=== PATIENT | female | born 1965 | race African-American/Black ===

== ENCOUNTER 2021-09-26 07:48 | Emergency (ER) | payer SELFPAY ==
[2021-09-26 07:49] VITALS: BP 152/77; PULSE 64; RESP 16; TEMP 36.8; O2SAT 98
[2021-09-26 08:20] VITALS: BP 152/77; PULSE 64; RESP 16; TEMP 36.8; O2SAT 98
--- NOTE | 2021-09-26 08:24 | ED.EAR ---
HPI - Ear Problem General Chief complaint: Ear Stated complaint: requesting nose and ear check Time Seen by Provider: 09/26/21 07:55 Source: patient Mode of arrival: ambulatory Limitations: no limitations History of Present Illness HPI Narrative: Patient is a 56-year-old female complaining of right ear and right nose itching started yesterday accompanied by nasal discharge. Patient states that feels like there is something in her ear and nose and she has been itching worse this morning. Patient denies any ear discharge, fever or chills. Patient states that she has allergies and takes Flonase. Related Data Allergies Allergy/AdvReac Type Severity Reaction Status Date / Time No Known Allergies Allergy Verified 09/26/21 07:58 PMFSH Comments Past medical history: None Family history: None Social history: Non-smoker no EtOH or drug use Exam Const: General: no acute distress Orientation/consciousness: patient oriented x3 HENMT: Head: normal to inspection Ears: external ears normal, TM's normal bilaterally, EAC's normal and Abnormal EAC present General nose exam: Normal external nose present, Normal nares present (Erythematous, boggy nasal turbinates) and Nasal discharge present clear Face and sinus: normal facial exam, sinuses nontender and no sinus tenderness Mouth: Yes moist mucous membranes Eyes: Conjunctivae: conjunctivae normal Neck: Neck: normal visual inspection Resp: Effort & Inspection: normal respiratory effort Course Vital Signs Vital signs: Vital Signs Temperature 36.8 C 09/26/21 07:49 Pulse Rate 64 09/26/21 07:49 Respiratory Rate 16 09/26/21 07:49 Blood Pressure 152/77 H 09/26/21 07:49 Pulse Oximetry 98 09/26/21 07:49 Temperature 36.8 C 09/26/21 08:20 Pulse Rate 64 09/26/21 08:20 Respiratory Rate 16 09/26/21 08:20 Blood Pressure 152/77 H 09/26/21 08:20 Pulse Oximetry 98 09/26/21 08:20 Medical Decision Making Vital Signs Vital Signs: Vital Signs Temperature 36.8 C 09/26/21 07:49 Pulse Rate 64 09/26/21 07:49 Respiratory Rate 16 09/26/21 07:49 Blood Pressure 152/77 H 09/26/21 07:49 Pulse Oximetry 98 09/26/21 07:49 Temperature 36.8 C 09/26/21 08:20 Pulse Rate 64 09/26/21 08:20 Respiratory Rate 16 09/26/21 08:20 Blood Pressure 152/77 H 09/26/21 08:20 Pulse Oximetry 98 09/26/21 08:20 Discharge Plan Discharge Clinical Impression: Seasonal allergies Patient Disposition: Home, Self-Care Condition: Stable Instructions: Allergies (ED) Prescriptions: New fexofenadine [Krystin Allergy] 180 mg tablet 180 mg PO DAILY Qty: 14 RF: 0 fluticasone propionate [24 Hour Allergy Relief] 50 mcg/actuation spray,suspension 1 spray intranasal DAILY Qty: 16 RF: 0 Follow-up/Referrals: Tiana,Joon Diaz MD [Primary Care Provider] - 09/30/21 Time of Disposition: 08:28
--- NOTE | 2021-09-26 08:29 | PC.NURSE ---
Pt becoming agitated and telling this RN I am not gonna sit here and wait for papers. I am leaving. Not doing it. This RN discussed EDP has not placed pt up for discharge yet, is possibly working on papers and I can find out. Pt unwilling to wait. Pt ambulated out in no distress.
== END 2021-09-26 08:31 | disposition home or self-care (01) ==
PROVIDERS: Emergency Provider Emergency Medicine; PCP Family Medicine
DX: J30.2 Other seasonal allergic rhinitis (principal)
CPT/HCPCS: 99283

== ENCOUNTER 2022-04-11 01:00 | Day surgery (SDC) | payer OTHER, SELFPAY ==
[2022-03-26 14:27] VITALS: BMI 36.1
[2022-04-11 11:18] VITALS: BP 129/81; PULSE 77; RESP 18; TEMP 35.8; O2SAT 100; BMI 35.6
--- NOTE | 2022-04-11 11:24 | PM.HPGS ---
History of Present Illness History of Present Illness Consent: Risks, benefits, and alternatives have been discussed and questions answered. Patient agrees to proceed with procedure. Chief complaint: family hx colon ca, neoplasm screening Narrative: Maida Roberts is a 57 year old female Referred for colon cancer screening. Her father had colon cancer. Review of Systems Review of Systems: All systems reviewed & are unremarkable except as noted in HPI and below PMFSH Social History Social History Smoking status: Never smoker Alcohol intake: never Substance use: never Substance use type: does not use Living arrangements: with family Spiritual care concerns: No Meds Home Medications and Allergies Home Medications Medication Instructions Recorded Confirmed Type ergocalciferol (vitamin D2) 1,250 1,250 mcg PO WEEKLY 03/26/22 03/26/22 History mcg (50,000 unit) capsule losartan 50 mg-hydrochlorothiazide 1 tablet PO DAILY 03/26/22 03/26/22 History 12.5 mg tablet topiramate 25 mg tablet 25 mg PO DAILY 03/26/22 03/26/22 History Allergies Allergy/AdvReac Type Severity Reaction Status Date / Time No Known Allergies Allergy Verified 04/11/22 11:17 Vital Signs Vital Signs - 24 hr 04/11/22 11:18 Temperature 35.8 C L Pulse Rate 77 Respiratory Rate 18 Blood Pressure 129/81 Pulse Oximetry 100 Oxygen Delivery Room Air Exam Const: General: alert Orientation/consciousness: patient oriented x3 Resp: Auscultation: clear to auscultation bilaterally Cardio: Rhythm: regular rhythm GI: GI Palp: Yes Soft to palpation and No Tenderness to palpation present (GI) Neuro: General: patient oriented x3 Assessment and Plan Assessment and plan (1) Colon cancer screening: Code(s): Z12.11 - Encounter for screening for malignant neoplasm of colon Status: Acute Assessment and Plan: Colonoscopy with possible biopsy or polypectomy or cautery or injection of substances.
[2022-04-11] MEDS: LACTATED RINGERS 1,000 ML 150 ML IV CONT (11:35)
--- NOTE | 2022-04-11 11:36 | P.PNAN_ITS ---
Anes - Initial Pre Proc Eval Procedure: Operation Date: 04/11/22 12:30 Proposed Procedures p Screening Colonoscopy - Gonzalo Durand MD Date/Time: 04/11/22 11:36 Surgeon: Gonzalo Durand MD Pre Op Diagnosis: family hx colon ca, neoplasm screening Patient Data Age: 57 Gender: F Height: 1.7 m Weight: 103.2 kg Last Vital Signs Temp 96.5 F L 04/11/22 11:18 Pulse 77 04/11/22 11:18 Resp 18 04/11/22 11:18 BP 129/81 04/11/22 11:18 Pulse Ox 100 04/11/22 11:18 O2 Del Method Room Air 04/11/22 11:18 Allergies Allergy/AdvReac Type Severity Reaction Status Date / Time No Known Allergies Allergy Verified 04/11/22 11:17 Home Medications Medication Instructions Recorded Confirmed Type ergocalciferol (vitamin D2) 1,250 1,250 mcg PO WEEKLY 03/26/22 03/26/22 History mcg (50,000 unit) capsule losartan 50 mg-hydrochlorothiazide 1 tablet PO DAILY 03/26/22 03/26/22 History 12.5 mg tablet topiramate 25 mg tablet 25 mg PO DAILY 03/26/22 03/26/22 History Patient hx anesthesia problems: none Family hx anesthesia problems: none Results Review: All pre-operative results and documents have been reviewed as part of the pre- operative evaluation. [facility] Social History Social History Smoking status: Never smoker Alcohol intake: never Substance use: never Substance use type: does not use Living arrangements: with family Spiritual care concerns: No Anes - Eval Final PreProcedure Day of Procedure 04/11/22 11:36 Patient weight: obese Heart: regular rate and rhythm Lungs: clear to auscultation Airway: Mallampati scale class II Neurological: alert and oriented Last oral intake: >/= 8 hours ASA classification: II Emergent: no Anesthetic plan: proceed Anesthesia type and monitoring: general GIVS and standard monitoring Results Review: All pre-operative results and documents have been reviewed as part of the pre- operative evaluation. Informed Consent: The patient's anesthetic plan and its attendant risks and benefits were discussed with the patient/family/POA. Questions were solicited and answers provided to the satisfaction of the patient/family/POA.
[2022-04-11] MEDS: SIMETHICONE ORAL SUSPENSION 20 MG/0.3 ML 30 ML BOTTLE 0.6 ML IRRIGATION (12:52)
[2022-04-11 13:15] VITALS: BP 97/56; PULSE 78; RESP 18; O2SAT 100
[2022-04-11 13:25] VITALS: BP 116/92; PULSE 74; RESP 18; O2SAT 100
== END 2022-04-11 13:40 | disposition home or self-care (01) ==
PROVIDERS: PCP Family Medicine; Visit Provider Internal Medicine Gastroenterology
PROC: 0DJD8ZZ Inspection of Lower Intestinal Tract, Via Natural or Artificial Opening Endoscopic (ICD-10-PCS; CPT 45378; principal; 2022-04-11 12:30)
DX: Z12.11 Encounter for screening for malignant neoplasm of colon (principal); Z80.0 Family history of malignant neoplasm of digestive organs; D12.2 Benign neoplasm of ascending colon; D12.3 Benign neoplasm of transverse colon; K57.30 Diverticulosis of large intestine without perforation or abscess without bleeding; E66.9 Obesity, unspecified; Z68.35 Body mass index [BMI] 35.0-35.9, adult
CPT/HCPCS: 45380; 45385; 88305; J2001; J2370; J2704; J7120

== ENCOUNTER 2022-12-29 14:32 | Emergency (ER) | payer OTHER, SELFPAY ==
[2022-12-29 14:43] VITALS: BP 149/81; PULSE 82; RESP 20; TEMP 36.4; O2SAT 98
--- NOTE | 2022-12-29 15:14 | ED.GENADULT ---
HPI - General Adult General Chief complaint: Ear Stated complaint: R ear pain Time Seen by Provider: 12/29/22 14:45 Source: patient Mode of arrival: ambulatory Limitations: no limitations History of Present Illness HPI narrative: This is a 57-year-old female who presents to the ED with chief complaint of right ear pain that has been going on for about a month. She reports that today the pain is worse so she wanted to get checked out. She states that she has been been seen by her PCP and an ENT doctor already and was not given any information on what could be going on. Patient states that her pain is only on the right side. Denies any recent illness. Denies any hearing loss or tinnitus. Denies any further complaint. Related Data Home Medications Medication Instructions Recorded Confirmed ergocalciferol (vitamin D2) 1,250 1,250 mcg PO WEEKLY 03/26/22 03/26/22 mcg (50,000 unit) capsule losartan 50 mg-hydrochlorothiazide 1 tablet PO DAILY 03/26/22 03/26/22 12.5 mg tablet topiramate 25 mg tablet 25 mg PO DAILY 03/26/22 03/26/22 Allergies Allergy/AdvReac Type Severity Reaction Status Date / Time No Known Allergies Allergy Verified 12/29/22 14:47 [facility] Social History Social History Smoking status: Never smoker Alcohol intake: never Substance use: never Substance use type: does not use Living arrangements: with family Spiritual care concerns: No Exam Narrative: GENERAL: Well-appearing, well-nourished, and in no acute distress. HEAD: Normocephalic, atraumatic. EYES: PERRLA and EOMI. ENT: Nares clear, no rhinorrhea or epistaxis. Mucous membranes moist. Oropharynx without tonsillar hypertrophy exudate or other lesions. Bilateral TMs with erythematous injection. No bulging. The right side does seem to be more injected than the left. The TMs are without perforation. NECK: Supple. No adenopathy or masses. CHEST: No respiratory distress. Clear to auscultation. No wheezes rales or rhonchi HEART: Regular rate and rhythm. No murmur heard. Normal peripheral pulses. ABDOMEN: Soft, nontender, nondistended, normal active bowel sounds. MSK: Normal range of motion. No edema. SKIN: Warm, dry, no rash. NEURO: Alert and oriented x3. No focal deficits. PSYCH: Normal mood and affect. Course Vital Signs Vital signs: Vital Signs Temperature 97.6 F 12/29/22 14:43 Pulse Rate 82 12/29/22 14:43 Respiratory Rate 20 12/29/22 14:43 Blood Pressure 149/81 H 12/29/22 14:43 Pulse Oximetry 98 12/29/22 14:43 Oxygen Delivery Room Air 12/29/22 14:43 Temperature 97.6 F 12/29/22 14:43 Pulse Rate 85 12/29/22 15:39 Respiratory Rate 18 12/29/22 15:39 Blood Pressure 138/86 12/29/22 15:39 Pulse Oximetry 99 12/29/22 15:39 Oxygen Delivery Room Air 12/29/22 14:43 Medical Decision Making MDM Narrative Medical decision making narrative: This is a 57-year-old female presents to the ED with chief complaint of right ear pain ongoing for the past month. She has already been seen by ENT and PCP for this problem. Vitals are normal. No recent illness. Exam shows mildly injected TMs bilaterally. She had tenderness with insertion of the otoscope. Patient will be given prescriptions for drops as well as p.o. antibiotics. She is stable for discharge. Supportive measures for home discussed. Return precautions given. She is in understanding and agreeable with plan for discharge and follow-up with her PCP on this Vital Signs Vital Signs: Vital Signs Temperature 97.6 F 12/29/22 14:43 Pulse Rate 82 12/29/22 14:43 Respiratory Rate 20 12/29/22 14:43 Blood Pressure 149/81 H 12/29/22 14:43 Pulse Oximetry 98 12/29/22 14:43 Oxygen Delivery Room Air 12/29/22 14:43 Temperature 97.6 F 12/29/22 14:43 Pulse Rate 85 12/29/22 15:39 Respiratory Rate 18 12/29/22 15:39 Blood Pressure 138/86 12/29/22 15:3
[2022-12-29 15:39] VITALS: BP 138/86; PULSE 85; RESP 18; O2SAT 99
== END 2022-12-29 15:41 | disposition home or self-care (01) ==
LOC: ANHED 15:23
PROVIDERS: Emergency Provider Physician Assistant; PCP Family Medicine
DX: H92.01 Otalgia, right ear (principal)
CPT/HCPCS: 99283

== ENCOUNTER 2024-08-31 15:48 | Emergency (ER) | payer OTHER, SELFPAY ==
--- NOTE | ~2024-08-31 | XR_ITS ---
EXAMINATION: XR chest 2V DATE: 08/31/2024 16:24 INDICATION: Chest pain TECHNIQUE: PA and lateral views of the chest were obtained. COMPARISON: Chest radiograph dated 11/21/2018 FINDINGS: The lungs are clear with no focal airspace opacities, pulmonary edema, pleural effusion or pneumothor ax. The cardiomediastinal silhouette is normal. Mild thoracic dextrocurvature with mild spondylosis. IMPRESSION: 1. No acute cardiopulmonary disease. Reviewed, dictated and finalized at location B. TABLE PERSON
[2024-08-31 15:50] VITALS: BP 139/76; PULSE 81; RESP 17; TEMP 36.6; O2SAT 100; O2SAT 98
--- NOTE | 2024-08-31 15:50 | ECG_ITS ---
Test Date: 2024-08-31 15:55:00 Measurements Intervals Morgan Rate: 82 P: 59 IL: 189 QRS: 3 QRSD: 85 T: 5 QT: 369 QTc: 433 Interpretive Statements SINUS RHYTHM POSSIBLE LEFT ATRIAL ENLARGEMENT [-0.1mV P WAVE IN V1/V2] No previous ECG available for comparison Electronically Signed On 09-01-2024 13:54:53 PROCESS PLANNER by Augusto Roblse M.D.
[2024-08-31] MEDS: ASPIRIN 81 MG CHEWABLE TABLET 324 MG PO (16:05)
[2024-08-31 16:06] LABS: Basophils Percent Auto 0.3 % (0.2-1.2); Eosinophils Absolute Auto 0.2 K/mm3 (0-0.3); Eosinophils Percent Auto 1.6 % (0-4.4); Hematocrit 38.7 % (37.0-47.0); Hemoglobin 12.5 g/dL (12.0-15.0); Immature Granulocyte Absolute 0.01 K/mm3 (0.00-0.031); Immature Granulocyte Percent A 0.1 % (0-0.5); Lymphocytes Absolute Auto 5.04 K/mm3 (0.9-3.2); Lymphocytes Percent Auto 55.2 % (18.3-44.2); Mean Corpuscular HGB Conc 32.3 g/dl (32-36); Mean Corpuscular Hemoglobin 28.3 pg (26-34); Mean Corpuscular Volume 87.8 fl (80-100); Mean Platelet Volume 9.6 fl (7.4-10.4); Monocytes Absolute Auto 0.8 K/mm3 (0.1-0.6); Monocytes Percent Auto 8.3 % (2.6-8.5); Neutrophils Absolute Auto 3.1 K/mm3 (1.3-6.7); Neutrophils Percent Auto 34.5 % (45.5-73.1); Platelet Count Result 314 k/mm3 (150-375); Red Blood Count 4.41 M/mm3 (4.2-5.4); Red Cell Distribution Width 13.5 % (11.5-14.5); White Blood Count 9.1 K/mm3 (4.5-10.0)
[2024-08-31 16:16] LABS: Alanine Aminotransferase 16 U/L (6-35); Alkaline Phosphatase 82 U/L (38-126); Anion Gap 9 mmol/L (4-12); Aspartate Amino Transferase 23 U/L (14-36); Bilirubin,Total 0.3 mg/dL (0.2-1.3); Blood Urea Nitrogen 23 mg/dL (7-17); Calcium 9.1 mg/dL (8.4-10.2); Carbon Dioxide 31 mmol/L (22-30); Chloride 98 mmol/L (98-107); Estimated Glomerular Filt Rate > 60; Glucose 100 mg/dL (65-110); Lipase 196 U/L (23-300); Potassium 3.9 mmol/L (3.4-5.0); Sodium 138 mmol/L (137-145)
[2024-08-31 16:17] LABS: INR 0.9; Partial Thromboplastin Time 27.2 Seconds (22.3-36.8); Prothrombin Time 12.5 Seconds (11.1-14.7)
[2024-08-31 16:28] LABS: Troponin I < 0.012 ng/mL (0.000-0.034)
[2024-08-31] MEDS: KETOROLAC 30 MG/ML VIAL (*BKC) IV PUSH (16:56)
[2024-08-31] MEDS: SIMETHICONE 125 MG CHEW TAB PO (16:56)
--- OUTSIDE RECORDS SUMMARY | 2024-08-31 17:23 | XMS_ITS | Encounter Summary ---
Author Organization [facility] Address [facility] [place] [address] Care Team Providers Care Auditing Control Clerk Name Role Phone Joon Montiel MD Primary Care Provider Encounter Details Date Type Department Care Team (Latest Contact Info) Description 03/14/2018 Abstract [facility] Lane Ozuna MD Social History Tobacco Use Types Packs/Day Years Used Date Smoking Tobacco: Never Smokeless Tobacco: Never Alcohol Use Standard Drinks/Week Comments No 0 (1 standard drink = 0.6 oz pur e alcohol) Comments No Sex and Gender Information Value Date Recorded Sex Assigned at Female 08/01/2024 9:29 AM [employer] Legal Sex Female 7:59 PM CDT Gender Identity Female 08/26/2024 8:13 AM [employer] Sexual Orientation Not on file documented as of this encounter Plan of Treatment Upcoming Encounters Date Type Department Care Team (Late st Contact Info) Description 09/09/2024 9:45 AM CDT Appointment [facility] [address] [place], [place] [id number] Joon Montiel MD [address] [facility] [address] [place], [place] [id number] documented as of this encounter Visit Diagnoses Not on filedocumented in this encounter Additional Health Concerns Infection Onset Date Last Indicated Resolved Time COVID-19 Rule Out 10/12/2023 10/12/2023 10/12/2023 8:38 AM CDT documented as of this encounter Care Teams Auditing Control Clerk Relationship Specialty Start Date End Date Joon Montiel MD [address] [place] [address] PCP - General 12/25/16 documented as of this encounter
--- OUTSIDE RECORDS SUMMARY | 2024-08-31 17:23 | XMS_ITS | Clinical Summary ---
Author Organization [facility] Address [facility] [place] [address] Care Team Providers Care Para Educator Name Role Phone Joon Montiel MD Primary Care Provider Allergies No known active allergies Medications ALLERGY RELIEF 180 MG tablet Take 1 tablet (180 mg total) by mouth daily. 02/08/20 22 Active fluticasone propionate (FLONASE) 50 MCG/ACT nasal sprayIndication s:Acute non-recurrent frontal sinusitis 1 spray by Each Nostril route daily. 16 g 11 10/12/19 24 Active losartan-hydroC HLOROthiazide (HYZAAR) 100-25 MG tabletIndicatio ns:Essential hypertension Take 1 tablet by mouth daily. 90 tablet 3 05/19/20 24 Active tirzepatide (MOUNJARO) 10 MG/0.5ML injectionIndica tions:Diabetes Mellitus Inject 10 mg into the skin once a week. Indications: Diabetes 6 mL 3 08/26/19 25 Active Glucose Blood (BLOOD GLUCOSE TEST STRIPS) StripIndication s:Type 2 diabetes mellitus with hyperglycemia, without long-term current use of insulin ([facility]) 1 each by Does not apply route daily. Use with glucometer to test blood glucose daily 100 strip 1 02/07/20 025 Discontinued(T herapy completed) Lancets MiscIndications :Type 2 diabetes mellitus with hyperglycemia, without long-term current use of insulin ([facility]) 1 each by Does not apply route daily. Use to prick finger daily- Dx: DM 100 each 3 02/07/2008/26/2 025 Discontinued(T herapy completed) Misc. Devices KitIndications: Type 2 diabetes mellitus with hyperglycemia, without long-term current use of insulin ([facility]) 1 Device by Does not apply route daily. Use to test blood glucose daily 1 kit 02/07/20 23 025 Discontinued(T herapy completed) predniSONE (DELTASONE) 10 mg tabletIndicatio ns:Acute non-recurrent frontal sinusitis 3 TABS PO DAILY X 3 DAYS, THEN 2 TABS PO DAILY X 3 DAYS, THEN 1 TAB PO DAILY X 3 DAYS. 18 tablet 10/12/19 24 025 Discontinued(T herapy completed) predniSONE (DELTASONE) 10 mg tabletIndicatio ns:Acute cough 3 TABS PO DAILY X 3 DAYS, THEN 2 TABS PO DAILY X 3 DAYS, THEN 1 TAB PO DAILY X 3 DAYS. 18 tablet 04/09/20 24 025 Discontinued(P t. elected to discontinue med) clobetasol (TEMOVATE) 0.05 % external solution RUB IN WELL DAILY TO AREAS OF SCALP AND NECK 01/18/20 24 025 Discontinued(T herapy completed) tirzepatide (MOUNJARO) 7.5 MG/0.5ML injectionIndica tions:Diabetes Mellitus Inject 7.5 mg into the skin once a week. Indications: Diabetes 6 mL 3 07/19/19 25 025 Discontinued(D ose adjustment) naproxen (NAPROSYN) 500 MG tabletIndicatio ns:Right leg pain Take 1 tablet (500 mg total) by mouth 2 (two) times daily with meals for 14 days. 28 tablet 08/01/19 25 025 Active Problems Problem Noted Date Diagnosed Date Type 2 diabetes mellitus wit h hyperglycemia, without long-term current use of insulin ([facility]) 2023 SOB (shortness of breath) 2023 Stage 2 chronic kidney disease 01/29/2023 Sleep apnea 06/25/2022 Atrophic vaginitis 01/16/2020 Heel pain, bilateral 03/25/2019 Achilles tendonitis, bilateral 08/17/2018 HSV-1 (herpes simplex virus 1) infection 018 HSV-2 (herpes simplex virus 2) infection 018 Essential hypertension 04/27/2018 Anxiety 01/13/2018 Vitamin D deficiency 04/17/2017 Fatigue 04/10/2017 Renal cyst 02/20/2017 Arthritis of both hands 06/12/2016 Hot flashes, menopausal 06/12/2016 Sciatica of left side without back pain 12/11/19 16 Lumbar strain 11/09/2015 Arthritis of sacroiliac joint 02/01/2015 Migraines 02/01/2015 Asymmetry of clavicles 05/05/2014 Arthralgia of shoulder 07/11/2013 Class 2 obesity due to exces s calories without serious comorbidity with body mass index (BMI) of 36.0 to 36.9 in adult 09/27/2012 Resolved Problems Problem Noted Date Diagnosed Date Resolved Date Achilles tendinitis 06/12/2016 03/31/20 22 Intramural leiomyoma of uterus 10/15/2015 06/25/2022 Routine general medical exam ination at a health care facility 07/21/2014 03/03/2022 Encounters Date Type Department Care Team Description 08/26/2024 8:00 AM ENGINEERING DEPARTMENT CHAIR Office Visit [facility] [address], [address] [place] [phone] Joon Montiel MD Follow Up (Discuss a pain in her head at the top of her head that occurs when she is laughing. She wants to get a MRI, but was told she can't get one. Also having a pain on her left side that started on Thursday. [facility] lab.) 08/25/2024 10:40 AM ENGINEERING DEPARTMENT CHAIR - 08/25/2024 11:59 PM ENGINEERING DEPARTMENT CHAIR Hospital Encounter [facility] [address] [facility] [address] Joon Montiel MD Discharge Disposition: Home or Self Care (Routine Discharge) 08/25/2024 Travel 08/24/2024 Telephone [facility] [address], [address] [place] [phone] Joon Montiel MD Problem 08/11/2024 Orders Only [facility] [address], [address] [place] [address] Joon Montiel MD 08/10/2024 Telephone [facility] [address], [address] [place] [address] Joon Montiel MD Problem 08/09/2024 7:58 AM ENGINEERING DEPARTMENT CHAIR - 08/09/2024 11:59 PM ENGINEERING DEPARTMENT CHAIR Hospital Encounter [facility] [place] [address] Joon Montiel MD Discharge Disposition: Home or Self Care (Routine Discharge) 08/09/2024 Travel 08/01/2024 9:31 AM ENGINEERING DEPARTMENT CHAIR - 08/01/2024 11:59 PM ENGINEERING DEPARTMENT CHAIR Hospital Encounter [facility] [place] [address] Joon Montiel MD Discharge Disposition: Home or Self Care (Routine Discharge) 08/01/2024 8:00 AM ENGINEERING DEPARTMENT CHAIR Office Visit [facility] [address], [address] [place] [address] Joon Montiel MD Knee Pain (Right knee has been hurting bad for a week./Pt states that she did not injure it. /) 08/01/2024 Telephone [facility] [address], [address] [place] [address] Joon Montiel MD Lab Results (Critical- D Dimer) 08/01/2024 Travel 07/14/2024 Telephone [facility] [address], [address] [place] [address] Joon Montiel MD Refill Request; Medication Problem 06/06/2024 Orders Only [facility] [address], [address] [place] [address] Joon Montiel MD 06/06/2024 Telephone [facility] [address], [address] [place] [address] Joon Montiel MD Results from Last 3 Months Immunizations Name Administration Dates Next Due Fluzone 6 Months+ Quad (0.5 mL Prefilled Syringe ) 2022,04/20/2019 MODERNA COVID-19 (12+) MRNA, LNP-S, PF, 100 MCG/ 0.5 ML DOSE 11/01/2020,10/04/2020 Family History Medical History Relation Comments Alcohol Abuse Brother 1 Drug Abuse Brother 1 Alcohol Abuse Brother 2 Drug Abuse Brother 2 Alcohol Abuse Brother 3 Drug Abuse Brother 3 Cancer Father Diabetes Mother Diabetes Sister 1 None Sister 2 None Sister 3 Relation Status Comments Brother 1 Alive Brother 2 Alive Brother 3 Alive Father Mother Sister 1 Sister 2 Alive Sister 3 Alive Social History Tobacco Use Types Packs/Day Years Used Date Smoking Tobacco: Never Passive Smoke Exposure: Never Smokeless Tobacco: Never Tobacco Cessation:Counseling Given: No Alcohol Use Standard Drinks/Week Comments No 0 (1 standard drink = 0.6 oz pur e alcohol) PHQ-2 Answer Date Recorded Patient Health Questionnaire-2 Score 0 08/01/2024 Comments No Sex and Gender Information Value Date Recorded Sex Assigned at Female 08/01/2024 9:29 AM ENGINEERING DEPARTMENT CHAIR Legal Sex Female 7:59 PM CDT Gender Identity Female 08/26/2024 8:13 AM ENGINEERING DEPARTMENT CHAIR Sexual Orientation Not on file Last Filed Vital Signs Vital Sign Reading Time Taken Comments Blood Pressure 138/88 08/26/2024 9:08 AM ENGINEERING DEPARTMENT CHAIR 2nd bp taken. Pulse 81 08/26/2024 8:14 AM ENGINEERING DEPARTMENT CHAIR Temperature 36.6 C (97.8 F) 08/26/2024 8:14 AM ENGINEERING DEPARTMENT CHAIR Respiratory Rate 16 08/26/2024 8:14 AM ENGINEERING DEPARTMENT CHAIR Oxygen Saturation 99% 08/26/2024 8:1 4 AM ENGINEERING DEPARTMENT CHAIR Inhaled Oxygen Concentration - - Weight 101.2 kg (223 lb 3.2 oz) 08/26/2024 8:14 AM ENGINEERING DEPARTMENT CHAIR Height 170.2 cm (5' 7.01 ) 08/26/2024 8 :14 AM ENGINEERING DEPARTMENT CHAIR Body Mass Index 34.95 08/26/2024 8:14 AM ENGINEERING DEPARTMENT CHAIR Plan of Treatment Upcoming Encounters Date Type Department Care Team (Late st Contact Info) Description 09/09/2024 9:45 AM [facility] [address] [place], [place] [phone] TianaJoon kumar MD [address] [place] [address] Health Maintenance Due Date Last Done Comments Pneumococcal Vaccine: Pediatrics (0 to 5 Years) and At-Risk Patients (6 to 64 Years) (1 of 2 - PCV) 1971 Diabetes: Retinopathy Eye Exam 1983 DTaP, Tdap and Td Vaccines (1 - Tdap) 1984 Zoster Vaccines (1 of 2) 2015 COVID-19 Vaccine (3 - season) 2024 11/01/2020, 10/04/2020 Influenza Adult (#1) 2024 2022, 04/20/20 19 Hemoglobin A1C 01/29/2025 08/01/2024, 04/29, 10/12/2023, Additional history exists Annual Physical 05/12/2025 05/12/2024, 02/28/2022 Kidney Health Evaluation 08/01/2025 08/01/2024 Lipid Panel 08/01/2025 08/01/2024, 08/2022, 03/27/2022, Additional history exists Mammogram Screening 05/31/2026 05/31/2024, 04/10/2023, 02/28/2022, Additional history exists Colorectal Cancer Screening Colonoscopy (10 Years) 04/11/2032 04/11/2022, 12/14/2017, 12/04/2017 Hepatitis C Completed 05/05/2018, 12/2017, 04/11/2013 PHQ-2 (Physician [place]) Completed 08/01/2024 Meningococcal B Vaccine Aged Out No l onger eligible based on patient's age to complete this topic Meningococcal Vaccine Aged Out No bhupinder lenore eligible based on patient's age to complete this topic RSV Immunizations Under 20 Months Aged Out No longer eligible based on patient's age to complete this topic Procedures Procedure Name Priority Date/Time Associated Diagnosis Comments XR KNEE+SUNRISE RT 3V STAT 08/25/2024 11:05 AM ENGINEERING DEPARTMENT CHAIR Right leg pain USV ART REST W FREIDA LOW EXT LILIANA 08/09/2024 8:30 AM ENGINEERING DEPARTMENT CHAIR Claudication ([facility]) VITAMIN D, 25 OH Routine 08/01/2024 9:48 AM ENGINEERING DEPARTMENT CHAIR Vitamin D deficiency LIPID PANEL Routine 08/01/2024 9:48 AM ENGINEERING DEPARTMENT CHAIR Screening cholesterol level BASIC METABOLIC PANEL Routine 08/01/2024 9:48 AM ENGINEERING DEPARTMENT CHAIR Type 2 diabetes mellitus with hyperglycemia, without long-term current use of insulin ([facility]) Essential hypertension Stage 2 chronic kidney disease ALBUMIN URINE RANDOM W/CREATININE Routine 08/01/2024 9:45 AM ENGINEERING DEPARTMENT CHAIR Type 2 diabetes mellitus with hyperglycemia, without long-term current use of insulin ([facility]) Stage 2 chronic kidney disease D-DIMER, QUANTITATIVE STAT 08/01/2024 9:43 AM ENGINEERING DEPARTMENT CHAIR Swelling of calf HEMOGLOBIN, GLYCOSYLATED Routine 08/01/2024 9:43 AM ENGINEERING DEPARTMENT CHAIR Type 2 diabetes mellitus with hyperglycemia, without long-term current use of insulin ([facility]) MG SCREENING W EDDY AUTUMN DIGI Routine 05/31/2024 2:57 PM ENGINEERING DEPARTMENT CHAIR Encounter for screening mammogram for malignant neoplasm of breast COLONOSCOPY GENERIC (SCAN ORDER) 04/11/2022 HEPATITIS A,B,& C Routine 05/05/2018 8:2 0 AM ENGINEERING DEPARTMENT CHAIR Essential (primary) hypertension from Last 3 Months or Most Recently Relevant to Health Maintenance Results * XR KNEE+SUNRISE RT 3V (08/25/2024 11:05 AM ENGINEERING DEPARTMENT CHAIR) Anatomical Region Laterality Modality Knee Radiographic Nuzhat ging 08/25/2024 11:4 4 AM ENGINEERING DEPARTMENT CHAIR Impressions 08/25/2024 11:51 AM ENGINEERING DEPARTMENT CHAIR =====IMPRESSION:===== Moderate osteoarthritis with moderate joint effusion. If there is clinical concern for internal knee derangement, consider MRI. Ordered By: JOON MONTIEL Interpreted By: Chang Enrique MD, 08/25/2024 11:44 AM Narrative 08/25/2024 11:51 AM ENGINEERING DEPARTMENT CHAIR [address] [address] Exam date/time: 08/25/2024 10:44 AM Examination: Right knee 3 views Reason For Exam: acute right knee pain and swelling but no known injury, normal D-dimer, normal FREIDA Comparison: 03/03/2019 Findings: No acute fracture or some position. Small to moderate marginal osteophytes diffusely throughout the knee. Mild to moderate patellofemoral joint space narrowing with articular surface irregularities small subchondral erosions or tiny cystic changes of the medial patellar facet and lateral trochlear facet. Only minimal if any narrowing in the medial compartment. Moderate joint effusion. Procedure Note Chang Enrique MD - 08/25/[address] [address] Exam date/time: 08/25/2024 10:44 AM Examination: Right knee 3 views Reason For Exam: acute right knee pain and swelling but no known injury,normal D-dimer, normal FREIDA Comparison: 03/03/2019 Findings: No acute fracture or some position. Small to moderate marginalosteophytes diffusely throughout the knee. Mild to moderate patellofemoraljoint space narrowing with articular surface irregularities smallsubchondral erosions or tiny cystic changes of the medial patellar facetand lateral trochlear facet. Only minimal if any narrowing in the medialcompartment. Moderate joint effusion. =====IMPRESSION:===== Moderate osteoarthritis with moderate joint effusion. If there is clinicalconcern for internal knee derangement, consider MRI. Ordered By: JOON MONTIEL Interpreted By: Chang Enrique MD, 08/25/2024 11:44 AM us Joon Montiel MD GENERAL IMAGING Final R esult * USV ART REST W FREIDA LOW EXT (08/09/2024 8:30 AM ENGINEERING DEPARTMENT CHAIR) Anatomical Region Laterality Modality Extremity Vascular Ultraso und 08/09/2024 8:05 AM ENGINEERING DEPARTMENT CHAIR Narrative 08/11/2024 7:12 AM ENGINEERING DEPARTMENT CHAIR ARTERIAL DOPPLER - FREIDA BILATERAL LOWER EXTREMITY [facility]ASCULAR LAB Pat.Name: ALVIN ROBERTS Pat.ID: [id number] .Date: 08/09/2024 Exam Time: 8:05:00 AM Study Type:ISRRAEL VS Arterial Doppler Legs AUTUMN Age: 10 1965,59Y Sex: F Sonogrphr: Zafar Metcalf RVT Pat. Stat.:Outpatient History / Clinical:right knee, calf pain Procedures: Doppler waveforms, Digit PPG, Systolic Pressures w/FREIDA ++++++++++++++++++++++++++++++++++++ SUMMARY: ++++++++++++++++++++++++++++++++++++ Leon FREDIA Criteria: >1.30 = falsely elevated, calcified vessels; 1.00-1.29 = no signif ischemia at rest ; .80-.99 = mild PAD, asymptomatic; .50-.79 = moderate PAD, claudication; <.50 = severe PAD, rest pain; <.30 = critical PAD, necrosis, poor healing (Digits: DBI >.60 Normal; <.60 Abnormal) (Positive Stress eval: FREIDA decrease of >.20 or >20% pressure drop) Right leg: Common Femoral waveform is triphasic, high amplitude; Popliteal triphasic, high amplitude; Posterior Tibial triphasic, high amplitude with FREIDA 1.2 ; DP/Anterior Tibial triphasic, high amplitude with FREIDA 1.02 . Digit flow by PPG is medium amplitude with DBI 1.05 . Left leg: Common Femoral waveform is triphasic, high amplitude; Popliteal triphasic, high amplitude; Posterior Tibial triphasic, high amplitude with FREIDA 1.18 ; DP/Anterior Tibial triphasic, high amplitude with FREIDA 0.966 . Digit flow by PPG is medium amplitude with DBI 1.05 . Exercise deferred due to right knee pain. CONCLUSION: FREIDA right > 1.0 with triphasic waveforms, with toe index 1.05 . FREIDA left > 1.0 with triphasic waveforms, with toe index 1.05 . No significant peripheral arterial disease at rest. No evidence of tibial artery disease bilaterally. There is no evidence of small vessel disease or embolism in either foot. ++++++++++++++++++++++++++++++++++++ MEASUREMENTS: ++++++++++++++++++++++++++++++++++++ PRESSURES Right Brachial Brach P 146 mmHg Right Ankle DP AnkleDP P 150 mmHg Right Ankle PT AnklePT P 177 mmHg Right Great Toe GreatToe P 155 mmHg Right FREIDA PT FREIDA PT 1.2 Right FREIDA DP FREIDA DP 1.02 Right TBI TBI 1.05 Left Brachial Brach P 147 mmHg Left Ankle DP AnkleDP P 142 mmHg Left Ankle PT AnklePT P 174 mmHg Left Great Toe GreatToe P 155 mmHg Left FREIDA PT FREIDA PT 1.18 Left FREIDA DP FREIDA DP 0.966 Left TBI TBI 1.05 <Electronic Signature> 08/11/2024 07:12 AM Chang Osuna M.D. Procedure Note Chang Osuna MD - 08/11/2024 ARTERIAL DOPPLER - FREIDA BILATERAL LOWER EXTREMITY [facility]ASCULAR LAB Pat.Name: ALVIN ROBERTS Pat.ID: [id number] .Date: 08/09/2024 Exam Time: 8:05:00 AM Study Type:ISRRAEL VS Arterial Doppler Legs AUTUMN Age: 10 1965,59Y Sex: F Sonogrphr: Zafar Metcalf, T Pat. Stat.:Outpatient History / Clinical:right knee, calf pain Procedures: Doppler waveforms, Digit PPG, Systolic Pressures w/FREIDA ++++++++++++++++++++++++++++++++++++ SUMMARY: ++++++++++++++++++++++++++++++++++++ Leon FERIDA Criteria: >1.30 = falsely elevated, calcified vessels; 1.00-1.29 = no signif ischemia at rest ; .80-.99 = mild PAD, asymptomatic; .50-.79 = moderate PAD, claudication; <.50 = severe PAD, rest pain; <.30 = critical PAD, necrosis, poor healing (Digits: DBI >.60 Normal; <.60 Abnormal) (Positive Stress eval: FREIDA decrease of >.20 or >20% pressure drop) Right leg: Common Femoral waveform is triphasic, high amplitude; Popliteal triphasic, high amplitude; Posterior Tibial triphasic, high amplitude with FREIDA 1.2 ; DP/Anterior Tibial triphasic, high amplitude with FREIDA 1.02 . Digit flow by PPG is medium amplitude with DBI 1.05 . Left leg: Common Femoral waveform is triphasic, high amplitude; Popliteal triphasic, high amplitude; Posterior Tibial triphasic, high amplitude with FREIDA 1.18 ; DP/Anterior Tibial triphasic, high amplitude with FREIDA 0.966 . Digit flow by PPG is medium amplitude with DBI 1.05 . Exercise deferred due to right knee pain. CONCLUSION: FREIDA right > 1.0 with triphasic waveforms, with toe index 1.05 . FREIDA left > 1.0 with triphasic waveforms, with toe index 1.05 . No significant peripheral arterial disease at rest. No evidence of tibial artery disease bilaterally. There is no evidence of small vessel disease or embolism in either foot. ++++++++++++++++++++++++++++++++++++ MEASUREMENTS: ++++++++++++++++++++++++++++++++++++ PRESSURES Right Brachial Brach P 146 mmHg Right Ankle DP AnkleDP P 150 mmHg Right Ankle PT AnklePT P 177 mmHg Right Great Toe GreatToe P 155 mmHg Right FREIDA PT FREIDA PT 1.2 Right FREIDA DP FREIDA DP 1.02 Right TBI TBI 1.05 Left Brachial Brach P 147 mmHg Left Ankle DP AnkleDP P 142 mmHg Left Ankle PT AnklePT P 174 mmHg Left Great Toe GreatToe P 155 mmHg Left FREIDA PT FREIDA PT 1.18 Left FREIDA DP FREIDA DP 0.966 Left TBI TBI 1.05 <Electronic Signature> 08/11/2024 07:12 AM Chang Osuna M.D. Joon Montiel MD VAS Final R esult * BASIC METABOLIC PANEL (08/01/2024 9:48 AM [facility]) GLUCOSE 90 70 - 99 MG/DL 08/01/2024 11:05 AM [facility] BUN 14 7 - 18 MG/DL 08/01/2024 11:05 AM [facility] CREATININE S/P/B 0.73 0.55 - 1.02 MG/DL 08/01/2024 11:05 AM [facility] SODIUM S/P/B 139 136 - 145 MMOL/L 08/01/2024 11:05 AM [facility] POTASSIUM S/P/B 4.3 3.5 - 5.1 MMOL/L 08/01/2024 11:05 AM [facility] CHLORIDE S/P/B 109 97 - 115 MMOL/L 08/01/2024 11:05 AM [facility] CO2 26.6 21 - 32 MMOL/L 08/01/2024 11:05 AM [facility] CALCIUM S/P/B 9.2 8.5 - 10.1 MG/DL 08/01/2024 11:05 AM [facility] ANION GAP 3.4 2 - 10 MMOL/L 08/01/2024 11:05 AM [facility] BUN CREATININE RATIO 19.2 6 - 26 08/01/2024 11:05 AM [facility] GFR ESTIMATE >90 >90 ML/MIN/1.7 3 M2 08/01/2024 11:05 AM [facility] Comment: NOTE: eGFR is not calculated for patients <18 years of age or gender unknown. This is an estimated GFR calculation using the new CKD EPI creatinine equation without race and so does not require a correction factor for race. This estimated GFR should not be used for calculating drug doses. 08/01/2024 9:48 AM ENGINEERING DEPARTMENT CHAIR us Joon Montiel MD LABORATORY Final R esult [facility] [address] [place] [address], * LIPID PANEL (08/01/2024 9:48 AM [facility]) CHOLESTEROL 166 <200 MG/DL 08/01/2024 11:05 AM [facility] TRIGLYCERIDES 84 <150 MG/DL 08/01/2024 11:05 AM [facility] HDL 61 >40.0 MG/DL 08/01/2024 11:05 AM [facility] LDL (CALCULATED) 88 <100 MG/DL 08/01/19 11:05 AM [facility] NON HDL CHOLESTEROL 105 <130 MG/DL 08/01 11:05 AM [facility] CHOL/HDL RATIO 2.7 0.0 - 4.5 08/01/2024 11:05 AM ENGINEERING DEPARTMENT CHAIR [facility] VLDL CALCULATION 17 5 - 55 MG/DL 08/01/2024 11:05 AM [facility] LIPID INTERPRETATION 08/01/2024 11:05 AM ENGINEERING DEPARTMENT CHAIR [facility] Comment: NIH CONCENSUS REPORT RECOMMENDATIONS: ADULT CHILD LOW RISK: CHOLESTEROL <200 <170 TRIGLYCERIDE <150 --- HDL >=60 --- LDL <100 <110 BORDERLINE: CHOLESTEROL 200-239 170-199 TRIGLYCERIDE 150-199 --- HDL 40-59 --- LDL 100-159 110-129 HIGH RISK: CHOLESTEROL >=240 >=200 TRIGLYCERIDE >=200 --- HDL <40 --- LDL >=160 >=130 08/01/2024 9:48 AM ENGINEERING DEPARTMENT CHAIR Joon Montiel MD LABORATORY Final R esult Performing Organization Address City/[facility]/ZIP Co de Phone Number [facility] [address] [place] [address], [place] [phone] * VITAMIN D 25 OH ([facility] ONLY) (08/01/2024 9:48 AM ENGINEERING DEPARTMENT CHAIR) Pathologist [facility] VITAMIN D 25 HYDROXY S/P/B 35 30 - 100 NG/ML 08/01/2024 12:00 PM ENGINEERING DEPARTMENT CHAIR [facility] Comment: INTERPRETATION DEFICIENT <20 INSUFFICIENT 20-29 SUFFICIENT 30-100 08/01/2024 9:48 AM ENGINEERING DEPARTMENT CHAIR Joon Montiel MD LABORATORY Final R esult [facility] [address] [place] [address], [place] [phone] * ALBUMIN URINE RANDOM W/CREATININE (08/01/2024 9:45 AM ENGINEERING DEPARTMENT CHAIR) CREATININE (U) 129.0 28 - 217 MG/DL 08/01/2024 10:26 AM ENGINEERING DEPARTMENT CHAIR [facility] MICROALBUMIN (U) <0.5 <2.0 mg/dL 08/01/2024 10:26 AM [facility] ALBUMIN/CREAT RATIO NOT CALCULATED <30 MG/G 08/01/2024 10:26 AM [facility] URINE SPECIMEN / Unknown 08/01/2024 9:45 AM ENGINEERING DEPARTMENT CHAIR Joon Montiel MD URINE ORDERABLES Final Result [facility] [address] [place] [address], [place] [phone] * (ABNORMAL) HEMOGLOBIN, GLYCOSYLATED (08/01/2024 9:43 AM ENGINEERING DEPARTMENT CHAIR) Pathologist [facility] HGB A1C 6.0(H) <5.7 % 08/01/2024 10:39 AM ENGINEERING DEPARTMENT CHAIR [facility] Comment: ADA GUIDELINES 2010 5.7 TO 6.4% INCREASED RISK OF DIABETES > OR = 6.5% CONSISTENT WITH DIABETES ESTIMATED AVG GLUCOSE 126 mg/dL 08/01/2024 10:39 AM ENGINEERING DEPARTMENT CHAIR [facility] 08/01/2024 9:43 AM ENGINEERING DEPARTMENT CHAIR Joon Montiel MD LABORATORY Final R esult [facility] [address] [place] [address], [place] [phone] * (ABNORMAL) D-DIMER, QUANTITATIVE (08/01/2024 9:43 AM ENGINEERING DEPARTMENT CHAIR) D-DIMER 566(HH) 0 - 500 ng{FEU}/mL 08/01/2024 10:36 AM ENGINEERING DEPARTMENT CHAIR [facility] Comment: D-Dimer values less than or equal to 500 ng/mL FEU have a negative predictive value of >95% for exclusion of deep vein thrombosis and pulmonary embolism. In patients over 50 (who tend to have higher normal baseline D-Dimer values), recent studies suggest age-adjusted D-Dimer cutoff values (calculated as: age [years] x 10 ng/mL) result in equivalent outcomes and no additional false negative findings. Successful Call: DDIMR called 08/01/2024 10:37 AM to [facility] ([id number]/[place]) by [id number]. Read Back: Yes 08/01/2024 9:43 AM ENGINEERING DEPARTMENT CHAIR us Joon Montiel MD LABORATORY Final R esult [facility] [address] [place] [address], * MG SCREENING W EDDY AUTUMN DIGI (05/31/2024 2:57 PM ENGINEERING DEPARTMENT CHAIR) Anatomical Region Laterality Modality Breast Bilateral Mammography 05/31/2024 4:26 PM ENGINEERING DEPARTMENT CHAIR Impressions 05/31/2024 4:28 PM ENGINEERING DEPARTMENT CHAIR IMPRESSION: No significant interval change. No mammographic evidence of malignancy. RECOMMENDATION: Routine ScreeningBilateral OVERALL IMAGING ASSESSMENT: ACR BI-RADS 2 - BENIGN FINDING(S). Ordered By: JOON MONTIEL Interpreted By: Terrell Ascencio, 05/31/2024 4:26 PM Narrative 05/31/2024 4:28 PM ENGINEERING DEPARTMENT CHAIR [facility] [address] [place] [id number] EXAMINATION: MG SCREENING W EDDY AUTUMN DIGI INDICATIONS: Screening TECHNIQUE: Digital full field CC and MLO screening mammography bilaterally to include 3-D Tomosynthesis technique. This study was read with the assistance of a computer-aided detection system. HISTORY: No reported breast complaint. No documented personal or first degree family history of breast cancer. No documented prior breast procedure. COMPARISON: Multiple prior examinations available for comparison dating back to 05/20/2010, the most recent of 04/10/2023, 02/28/2022, and 04/05/2020. TISSUE DENSITY: There are scattered areas of fibroglandular density. FINDINGS: Few scattered typically benign round and rim calcifications. No suspicious microcalcification or mass. No developing asymmetry or architectural distortion. No axillary adenopathy. 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 CHAIR) HEPATITIS B SURFACE AG NON-REACTI VE NON-REACTI VE 05/05/2018 2:03 PM ENGINEERING DEPARTMENT CHAIR [facility] HEP B CORE TOTAL AB NON-REACTI VE NON-REACTI VE 05/05/2018 2:34 PM ENGINEERING DEPARTMENT CHAIR [facility] HEP B SURFACE AB NON-REACTI VE 05/05/2018 9:59 PM ENGINEERING DEPARTMENT CHAIR [facility] HAV IGM NON-REACTI VE NON-REACTI VE 05/05/2018 2:55 PM ENGINEERING DEPARTMENT CHAIR [facility] HEPATITIS C AB NON-REACTI VE NON-REACTI VE 05/05/2018 2:33 PM ENGINEERING DEPARTMENT CHAIR [facility] 05/05/2018 8:20 AM ENGINEERING DEPARTMENT CHAIR us Joon Montiel MD LABORATORY Final R esult [facility] [address] [place] [address], from Last 3 Months or Most Recently Relevant to Health Maintenance Insurance [employer] [facility] Care Teams Para Educator Relationship Specialty Start Date End Date Joon Montiel MD [address] [place] [address] PCP - General 12/25/16
--- OUTSIDE RECORDS SUMMARY | 2024-08-31 17:23 | XMS_ITS | Referral Summary ---
Author Organization [email or web address] Address [address] [place] [address] Care Team Providers Care Guest Service Representative Name Role Phone Joon Montiel MD Primary Care Provider Source Comments [facility],non-owned Affiliates and Associated Physician Practices is amultiple site organization consisting of ambulatory clinics and hospital sitesin [place], [place], [place] and [place]. This disclosure is being madepursuant to the Care Everywhere program and may not contain all information available regarding this patient. Last updated 18.[facility] Allergies No known active allergies Medications * Be aware that medications may not be up to date on this document. Alwaysverify current medications with the patient. Medication Sig Dispensed Refills Start Date End Date Status traMADol (ULTRAM) 50 MG tablet Take 1 Tab by mouth every 6 hours as needed 60 Tab 0 04/03/2016 Active HYDROcodone-acetamino phen (NORCO) 5-325 MG tablet Take 1 Tab by mouth every 4 hours as needed 30 Tab 0 04/03/2016 Active docusate sodium (COLACE) 100 MG capsule Take 1 Cap by mouth 2 times daily 60 Cap 1 04/03/2016 Active ibuprofen (MOTRIN) 600 MG tablet Take 1 Tab by mouth every 6 hours as needed for Pain 60 Tab 1 04/03/2016 Active polyethylene glycol 3350 (MIRALAX) packet Take 17 g by mouth once daily 30 Packet 1 04/03/2016 Active Active Problems No known active problems Social History Tobacco Use Types Packs/Day Years Used Date Smoking Tobacco: Never Alcohol Use Standard Drinks/Week Comments No 0 (1 standard drink = 0.6 oz pur e alcohol) Sex and Gender Information Value Date Recorded Sex Assigned at Not on file Gender Identity Not on file Sexual Orientation Not on file Last Filed Vital Signs Vital Sign Reading Time Taken Comments Blood Pressure 130/90 05/26/2016 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 No 04/02/2016 Is person blind or have serious difficulty seein g? No 04/02/2016 Does person have serious dif ficulty walking/climbing stairs? No 04/02/2016 Does person have difficulty dressing/bathing? No 04/02/2016 Does person have difficulty doing errands alone? No 04/02/2016 Cognitive Status Response Date of Assessm ent Does person have difficulty concentrating/remembering/making decisions? No 04/02/2016 Plan of Treatment Not on file Advance Directives * Full Code (Latest Code Status on File) Date Activated Date Inactivated Comments 04/02/2016 1:54 PM 04/03/2016 11:06 AM Care Teams Guest Service Representative Relationship Specialty Start Date End Date Joon Montiel MD PCP - General Family Medicine 03/26/16
--- OUTSIDE RECORDS SUMMARY | 2024-08-31 17:23 | XMS_ITS | Patient Health Summary ---
Author Organization [facility] Address [address] [facility] [address] Care Team Providers Care Watch Train Inspector Name Role Phone Joon Montiel MD Primary Care Provider Note from [facility],non-owned Affiliates and Associated Physician Practices is amultiple site organization consisting of ambulatory clinics and hospital sitesin [place], [place], [place] and [place]. This disclosure is being madepursuant to the Care Everywhere program and may not contain all information available regarding this patient. Last updated 18.[facility] Allergies No known active allergies Medications * Be aware that medications may not be up to date on this document. Alwaysverify current medications with the patient. * traMADol (ULTRAM) 50 MG tablet(Started 04/03/2016) Take 1 Tab by mouth every 6 hours as needed * HYDROcodone-acetaminophen (NORCO) 5-325 MG tablet(Started 04/03/2016) Take 1 Tab by mouth every 4 hours as needed * docusate sodium (COLACE) 100 MG capsule(Started 04/03/2016) Take 1 Cap by mouth 2 times daily 1 refill left * ibuprofen (MOTRIN) 600 MG tablet(Started 04/03/2016) Take 1 Tab by mouth every 6 hours as needed for Pain 1 refill left * polyethylene glycol 3350 (MIRALAX) packet(Started 04/03/2016) Take 17 g by mouth once daily 1 refill left Active Problems No known active problems Social [...] Comments Blood Pressure 130/90 05/26/2016 4:18 PM 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 Pulse 74 04/03/2016 8:23 AM CDT Temperature 36.9 C (98.4 F) 04/03/2016 8:23 AM CDT Respiratory Rate 16 04/03/2016 8:23 AM CDT Oxygen Saturation 100% 04/03/2016 8:23 AM CDT Inhaled Oxygen Concentration - - Weight 94.8 kg (209 lb) 05/26/2016 4:18 PM 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 Height 171.5 cm (5' 7.5 ) 05/26/2016 4:18 PM 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 Body Mass Index 32.25 05/26/2016 4:18 PM 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 Procedures * CARDIAC RHYTHM STRIP ORDER(Performed 04/05/2016) * APHERESIS/TRANSFUSION ORDER(Performed 04/05/2016) * MAGNESIUM BLOOD(Performed 04/03/2016) Performed for Diagnosis unknown * POTASSIUM BLOOD(Performed 04/03/2016) Performed for Diagnosis unknown * PATHOLOGY TISSUE EXAM (STL)(Performed 04/02/2016) Performed for Uterine leiomyoma, unspecified location, Diagnosis unknown * CYSTOSCOPY (FLEXIBLE/RIGID)(Performed 04/02/2016) Performed for Uterine leiomyoma, unspecified location, Diagnosis unknown * HYSTERECTOMY TOTAL LAPAROSCOPIC WITH SALPINGECTOMY AND/OR OOPHORECTOMY (Performed 04/02/2016) Performed for Uterine leiomyoma, unspecified location, Diagnosis unknown * HCG URINE QUALITATIVE - POINT OF CARE(Performed 04/02/2016) * PATHOLOGY/GENETICS HISTORICAL-ONBASE(Performed 04/02/2016) * TYPE + SCREEN PANEL(Performed 03/27/2016) Performed for Pre-op testing * CBC W AUTO DIFFERENTIAL(Performed 03/27/2016) Performed for Pre-op testing * BLOOD TYPE VERIFICATION(Performed 03/27/2016) Results * CARDIAC RHYTHM STRIP ORDER (04/05/2016 2:19 AM CDT) Narrative 04/05/2016 2:19 AM CDT Ordered by an unspecified provider. Scanned Document CARDIAC SERVICES ORD ERABLES * APHERESIS/TRANSFUSION ORDER (04/05/2016 2:19 AM CDT) Narrative 04/05/2016 2:19 AM CDT Ordered by an unspecified provider. Scanned Document NURSING - VITAL SIGN S AND ASSESSMENT * POTASSIUM BLOOD (04/03/2016 2:44 AM CDT) Potassium 3.8 3.5 - 5.1 mmol/L 04/03/2016 3:04 AM CDT [facility] Blood BLOOD SPECIMEN / Unknown Lab Venipuncture / Unknown 04/03/2016 2:44 AM CDT 04/03/2016 2:45 AM CDT Alpa Felix MD LAB - CHEMISTRY O RDMARANDA Performing Organization Address [facility] Co de Phone Number [facility] [address] [place] [address] * MAGNESIUM BLOOD (04/03/2016 2:44 AM CDT) Pathologist [facility] Magnesium 1.8 1.6 - 2.6 mg/dL 04/03/2016 3:05 AM CDT [facility] Blood BLOOD SPECIMEN / Unknown Lab Venipuncture / Unknown 04/03/2016 2:44 AM CDT 04/03/2016 2:45 AM CDT Alpa Felix MD LAB - CHEMISTRY O RDERACHAUNCEY Performing Organization Address City/[facility]/ZIP Co de Phone Number [facility] [address] [place] [address] * GROSS + MICRO EXAM (STL) (04/02/2016 9:24 AM CDT) Case Report Surgical Pathology Report Case: [id number] Authorizing Provider: Shayy Stephens, Collected: 04/02/2016 09:24 AM Ordering Location: [facility] Received: 04/02/2016 11:46 AM Pathologist: Maria Esther Martell MD Specimen: Uterus w Tubes, uterus and cervix with bilateral tubes 04/04/2016 8:34 AM [facility] Final Diagnosis 1. Uterus, bilateral fallopian tubes, hysterectomy and bilateral salpingectomy: -- Cervix: Nabothian cyst, no dysplasia -- Endometrium: No pathologic diagnosis -- Myometrium: Leiomyomata, adenomyosis -- Bilateral fallopian tubes: No pathologic diagnosis PD 04/04/2016 8:34 AM [facility] Gross Description The specimen is received in one container in formalin for gross and microscopic examination labeled with the patient's name, Seals, Maida S, and uterus with bilateral tubes, consists of a uterus with attached remnant of bilateral tubes weighing 206 grams and measuring 9.5 cm x 6.3 cm x 5 cm. The serosa is pink-burdick and dull. The right fallopian tube measures 0.8 cm in length x 0.5 cm in diameter and the left fallopian tube measures 0.5 cm in length x 0.5 cm in diameter. There is a 4.5 x 3.5 x 3 cm firm, white, with rolling pattern mass attached to the anterior serosal surface of the uterus and is connected to anterior myometrium. The ectocervix measures 3 cm. The internal os is probe patent and measures 1.3 cm. The specimen is bivalved revealing the endocervical canal measures 4 cm x 1 cm and endometrial cavity is thickened and measures 4 cm x 3 cm. There are multiple leiomyomas, measure up to 3 cm in the anterior and posterior myometrium; the anterior myometrium measures up to 3 cm and the posterior myometrium measures up to 3.5 cm. There is no necrosis in the leiomyomata. The specimen is submitted as follows: A1 - Anterior cervix A2 - Posterior cervix A3-A6 - Multiple traveling representative sections from the leiomyomas A7 - Anterior endomyometrium A8 - Posterior endomyometrium A9 - Right fallopian tube A10 - Left fallopian tube PD/aretha 04/04/2016 8:34 AM [facility] Microscopic Description Sections of the cervix show a Nabothian cyst. There is no evidence of dysplasia or malignancy. Sections of the bilateral fallopian tubes show no significant pathologic diagnosis. Sections of the endomyometrium and uterine serosa show benign histology. The endometrium is inactive. Sections of the myometrium show leiomyomata, and also endometrial glands with surrounding stroma consistent with adenomyosis. PD 04/04/2016 8:34 AM CDT [facility] Pathology/Cytolo gy UTERUS AND FALLOPIAN TUBES, CS / Unknown 04/02/2016 9:24 AM CDT 04/02/2016 11:46 AM CDT Shayy Stephens MD LAB - PATHOL OGY/CYTOLOGY ORDERABLES Performing Organization Address City/[facility]/ZIP Co de Phone Number [facility] [address] [place] [address] * HCG URINE QUALITATIVE - POINT OF CARE (IP) (04/02/2016 6:27 AM CDT) HCG Qual Urine Negative Negative [facility] POCT TESTING QC Verified Yes Yes [facility] POC T TESTING Urine specimen (specimen) URINE / Unknown 04/02/2016 6:27 AM CDT Thad Thompson MD LAB - POINT OF CARE ORDERABLES Performing Organization Address [facility] Co de Phone Number [facility] POCT TESTING [address] [place] [address] * PATHOLOGY/GENETICS HISTORICAL-ONBASE (04/02/2016) 04/02/2016 Historical Provider LAB - CHEMISTRY O RDERABLES Performing Organization Address City/[facility] Co de Phone Number [place] [phone] [address] * TYPE + SCREEN PANEL (03/27/2016 9:13 AM CDT) ABO A 03/27/2016 11:06 AM CDT [facility] Rh Type Positive 03/27/2016 11:06 AM CDT [facility] Comment:History check perfor med. No retype required. Antibody Screen Negative 03/27/2016 11:06 AM CDT [facility] Miscellaneous samples (specimen) BLOOD SPECIMEN / Unknown Venipuncture / Unknown 03/27/2016 9:13 AM CDT 03/27/2016 9:22 AM CDT Shayy Stephens MD LAB - BLOOD BANK ORDERABLES [facility] [address] * (ABNORMAL) CBC W AUTO DIFFERENTIAL (03/27/2016 9:13 AM CDT) [facility] Signature WBC 7.8 4.4 - 10.7 x10E9/L 03/27/2016 9:30 AM CDT [facility] WBC Corrected x10E9/L 03/27/2016 9:30 AM CDT [facility] RBC 4.48 3.80 - 5.20 x10E12/L 03/27/2016 9:30 AM CDT [facility] Hemoglobin 13.3 12.0 - 15.6 gm/dL 03/27/2016 9:30 AM CDT [facility] Hematocrit 39.9 35.9 - 45.5 % 03/27/2016 9:30 AM CDT [facility] MCV 89.1 80.7 - 98.3 fl 03/27/2016 9:30 AM CDT [facility] MCH 29.7 26.7 - 34.0 pg 03/27/2016 9:30 AM CDT [facility] MCHC 33.3 30.8 - 35.9 gm/dL 03/27/2016 9:30 AM CDT [facility] Platelet Count 341 153 - 416 x10E9/L 03/27/2016 9:30 AM CDT [facility] RDW-CV 13.0 12.1 - 14.9 % 03/27/2016 9:30 AM CDT [facility] MPV 9.2(L) 9.4 - 12.9 fl 03/27/2016 9:30 AM CDT [facility] Neutrophils % 50.7 44.0 - 73.0 % 03/27/2016 9:30 AM CDT [facility] Lymphocytes % 40.5 20.0 - 43.0 % 03/27/2016 9:30 AM CDT [facility] Monocytes % 7.1 5.0 - 13.0 % 03/27/2016 9:30 AM CDT [facility] Eosinophils % 1.0 0.0 - 6.0 % 03/27/2016 9:30 AM CDT [facility] Basophils % 0.4 0.0 - 2.0 % 03/27/2016 9:30 AM CDT [facility] Immature Granulocytes 0.3 0 - 1 % 03/27/2016 9:30 AM CDT [facility] Neutrophil Absolute 3.93 2.01 - 7.14 x10E9/L 03/27/2016 9:30 AM CDT [facility] Lymphocytes Absolute 3.14 1.07 - 3.94 x10E9/L 03/27/2016 9:30 AM CDT [facility] Monocytes Absolute 0.55 0.26 - 1.07 x10E9/L 03/27/2016 9:30 AM CDT [facility] Eosinophils Absolute 0.08 0 - 0.47 x10E9/L 03/27/2016 9:30 AM CDT [facility] Basophils Absolute 0.03 0 - 0.08 x10E9/L 03/27/2016 9:30 AM CDT [facility] Immature Granulocytes Absolute 0.02 0.00 - 0.06 x10E9/L 03/27/2016 9:30 AM CDT [facility] nRBC Auto 0 /100 WBC 03/27/2016 9:30 AM T [facility] Blood BLOOD SPECIMEN / Unknown Venipuncture / Unknown 03/27/2016 9:13 AM CDT 03/27/2016 9:22 AM CDT Shayy Stephens MD LAB - HEMATO LOGY ORDERABLES Performing Organization Address City/State/[facility] Co de Phone Number [facility] [address] [place] [address] * BLOOD TYPE VERIFICATION (03/27/2016 9:10 AM CDT) ABO A 03/27/2016 10:17 AM CDT [facility] Rh Type Positive 03/27/2016 10:17 AM CDT [facility] Miscellaneous samples (specimen) BLOOD SPECIMEN / Unknown Venipuncture / Unknown 03/27/2016 9:10 AM CDT 03/27/2016 9:28 AM CDT Shayy Stephens MD LAB - BLOOD BANK ORDERABLES [facility] [address] Care Teams Watch Train Inspector Relationship Specialty Start Date End Date Joon Montiel MD PCP - General Family Medicine 03/26/16
--- OUTSIDE RECORDS SUMMARY | 2024-08-31 17:23 | XMS_ITS | Data Portability ---
Author Organization [facility] [employer] , [facility] Address [address] [place] [address] Assessment Encounter Date Assessment Date Assessment LastModified by Organization Details LastModified Time 03/25/2022 03/25/2022 56 y.o. here for annual exam. - S/P hysterectomy - Routine labs done with PCP - Mammo last month WNL, - DEXA at age 65 - Depression screen NEG - BMI counseling, diet and exercise reviewed, desires weight management, plans to schedule with [facility] to discuss medications. diet and lifestyle modifications discussed. - RTO for annual or PRN lduffe Not available 03/25/2022 16:45:02 Plan of Treatment Reminders Order Date Submit Date Provider Last Modified By Organization Details Last Modified Time Details Appointments None recorded. Lab testosteron e, free + total, serum 2021 [facility], [address] [facility], [place], [address], 12:25:18 Referral None recorded. Procedures None recorded. Surgeries None recorded. Imaging None recorded. Medication Orders Estrace 0.01% (0.1 mg/gram) vaginal cream 2021 [facility] #[id number], [address] [facility], [place], [place], [phone], 16:36:02 Vivelle-Dot 0.05 mg/24 hr transdermal patch 2021 [facility] #[id number], [address], [place], [place], [id number], 16:36:03 Wegovy 0.25 mg/0.5 mL subcutaneou s pen injector 2021 [facility] #[id number], [address] , [place], [place], [phone], 16:32:35 phentermine 37.5 mg tablet 2021 [facility] #[id number], [address], [place], [place], [phone], 16:32:37 Patient TargetsNo targets recorded. Patient InstructionsNo instructions recorded. Reason for Referral None Reported. Results Created Date Observation Date Name Description Value Unit Range Abnormal Flag Note LastModifiedBy Organization Detail LastModifiedTime 05/23/2005/23/2022 TESTO STERO NE, FREE (DIAL YSIS) AND TOTAL ,MS testosterone , total, MS 20 NG/dL 2-45 For addit ional infor lionel briggs e refer to https ://ed ucati on.qu delon appAttach. com/f aq/FA Q165 (This link is being provi ded for infor scotty nal/e ducat ional purpo ses only. ) (Note ) This test was devel oped and its oh tical perfo rmanc e kely cteri stics have been deter mined by [employer]. It has not been clear ed or appro ryann by the FDA. This assay has been valid ated pursu ant to the CLIA regul ation s and is used for clini andriy purpo ses. Not Available [facility] [address] [place], [address], 05/23/2022 12:25:18 05/23/20 22 05/23/2022 TESTO STERO NE, FREE (DIAL YSIS) AND TOTAL ,MS testosterone , free 3.2 pg/mL 0.1-6. 4 (Note ) This test was devmiguel gardner and its oh tical perfo rmanc e kely cteri stics have been deter mined by [employer]. It has not been clear ed or appro ryann by the FDA. This assay has been valid ated pursu ant to the CLIA regul ation s and is used for clini andriy purpo ses. [facility] med fusio n [address] [facility] [address] [place] [address] [phone] Sathish fitzpatrick MD NO COLLE CTION DATE RECEI RYANN. WE HAVE USED THE DATE THE SPECI MEN WAS RECEI RYANN BY THIS LABOR ATORY THE COLLE CTION DATE. IF THIS IS INCOR RECT, PLEAS E CONTA CT CLIEN T SERVI MARCY. PHONE NUMBE R: [phone] Not Available [employer] [place] [address] [place], [address], 05/23/2022 12:25:18 Result Notes None recorded. Problems Name Problem SNOMED Code Status Onset Date Resolution Date Notes Provider Name and Address Organization Details Recorded Time Clinical finding Active 2015 Pain in left leg; Progress : Stable Added By: Jacqueline Feliciano Add to Current Problems : YES ProblemS tatus: Current Not Available [facility] 2 07:46:31 Abnormal weight gain 629310510 Active 2019 Abnormal weight gain; Progress : Stable Added By: Tiana Stratton Add to Current Problems : YES ProblemS tatus: Current Not Available [facility] 2 07:46:26 Polyp of corpus uteri 64379867 Active 2015 Polyp of corpus uteri; Progress : Stable Added By: Jacqueline Feliciano Add to Current Problems : YES ProblemS tatus: Current Uterine polyp; Location : None Progress : Stable Added By: Jacqueline Feliciano Add to Current Problems : YES ProblemS tatus: Current Not Available [facility] [address] 07:46:[address] Concept Completed 201508/21/2016 Encounte r for follow-u p examinat ion after complete d treatmen t for conditio ns other than malignan t neoplasm ; Progress : Stable Added By: Zahra Segovia Add to Current Problems : NO ProblemS tatus: Resolve Not Available [facility] 2 07:46:21 Surgical follow-u p - normal 673052386 Completed 201508/21/2016 Follow-u p exam followin g surgery; Severity : Moderate Progress : Stable Added By: Zahra Segovia Add to Current Problems : NO ProblemS tatus: Resolve Not Available [facility] 1 05:38:23 Neoplasm of body of uterus 777847928 Active 2015 Uterine fibroids ; Progress : Stable Added By: Maricarmen Encarnacion Add to Current Problems : YES ProblemS tatus: Current Not Available [facility] 2 07:46:54 Leukorrh ea 509927668 Completed 201512/30/2015 Vaginal Discharg e; Severity : Moderate Progress : Stable Added By: Maricarmen Encarnacion Add to Current Problems : NO ProblemS tatus: Resolve Not Available [facility] 1 05:38:23 Pelvic and perineal pain 694623427 Completed 201507/16/2016 Pelvic and perineal pain; Progress : Stable Added By: Jacqueline Rodriguez Add to Current Problems : NO ProblemS tatus: Resolve Not Available [facility] 2 07:46:31 Menopaus e present 988239560 Active 2019 Menopaus al and female climacte no states; Progress : Stable Added By: Tiana Stratton Add to Current Problems : YES ProblemS tatus: Current Not Available [facility] 2 07:46:31 Sampling of vagina for Papanico laou smear Active 2019 Encounte r for gynecolo gical examinat ion (general ) (routine ) without abnormal findings ; Progress : Stable Added By: Thu Amato Add to Current Problems : YES ProblemS tatus: Current Not Available [facility] 2 07:46:50 Low back pain 619627327 Active 2015 Back Pain, Lower; Location : None Progress : Stable Added By: Jacqueline Feliciano Add to Current Problems : NO ProblemS tatus: Current Low back pain; Progress : Stable Added By: Jacqueline Feliciano Add to Current Problems : YES ProblemS tatus: Current Not Available [facility] 2 07:46:26 Female genital organ symptoms 988545567 Completed 201507/16/2016 Pelvic pain; Progress : Stable Added By: Jacqueline Rodriguez Add to Current Problems : NO ProblemS tatus: Resolve Not Available [facility] 2 07:46:26 Atrophic vaginiti s 91449081 Active 2019 Postmeno pausal atrophic vaginiti s; Progress : Stable Added By: Tiana Stratton Add to Current Problems : YES ProblemS tatus: Current Not Available [facility] 2 07:46:26 Intramur al leiomyom a of uterus 80577674 Active 2015 Intramur al leiomyom a of uterus; Progress : Stable Added By: Maricarmen Encarnacion Add to Current Problems : YES ProblemS tatus: Current Not Available [facility] 2 07:46:31 Screenin g mammogra phy Active 2019 Encounte r for screenin g mammogra m for malignan t neoplasm of breast; Progress : Stable Added By: Thu Amato Add to Current Problems : YES ProblemS tatus: Current Not Available [facility] 2 07:46:50 Postoper ative follow-u p visit Completed 201508/21/2016 Follow-u p exam followin g surgery; Location : None Progress : Stable Added By: Zahra Segovia Add to Current Problems : YES ProblemS tatus: Resolve Not Available [facility] 2 07:46:50 Body mass index 30+ - obesity 921413311 Active 2021 Shayy rodríguez, [facility] 2 11:41:28 Problem Notes None recorded. Procedures Surgical History Date Name Laterality Status Provider Name and Address Organization Details Recorded Time 11/13/19 hysteroscopy completed [email or web address] 03/22/2022 22:27:21 repair of umbilical hernia completed [email or web address] 03/22/2022 22:26:31 hysterectomy completed Katy Rai [facility] 03/22/2022 22:26:47 Imaging Results None recorded. Procedure Notes None recorded. Medical Equipment None Reported. Allergies No known drug allergies Medications Name Sig Start Date Stop Date Status Note LastModified by Organization Details LastModified Time amoxicill in 500 mg capsule TAKE 1 CAPSULE BY MOUTH EVERY 8 HOURS FOR 7 DAYS 03/25 completed Not Available Not Available Not Available metformin 500 mg tablet active Not Available Not Available Not Available Neurontin 300 mg capsule Take 1 tab at daily for 3 days then BID 02/15 completed Neuronti n 300mg Capsules RxNorm: 833841 Allow Substitu tion: True Refill Denied: No For Problem: Leg pain Not Available Not Available Not Available ibuprofen 800 mg tablet 1 p.o. every 8 hours as needed 02/03 completed Ibuprofe n 800mg Tablet RxNorm: 399544 Allow Substitu tion: True Refill Denied: No For Problem: Back Pain, Lower Not Available Not Available Not Available Medrol (Farzad) 4 mg tablets in a dose pack Take as directed 12/02 completed Medrol 4mg Dosepak Allow Substitu tion: True Refill Denied: No Not Available Not Available Not Available Diflucan 150 mg tablet take 1 tablet (150 mg) Now and 1 tab PO in 72 hours 03/25 completed Diflucan 150 mg oral tablet RxNorm: 649196 Allow Substitu tion: True Refill Denied: No Edited by: Pamela Cuenca) on 03/22/20 20 Stopped by: Pamela Cuenca) on Not Available Not Available Not Available topiramat e 25 mg tablet TAKE 1 TABLET BY MOUTH DAILY X7 DAYS. 2 TABLETS DAILY X7 DAYS. 3 TABLETS DAILY X7 DAYS. THEN 4 TABLETS DAILY X7 DAYS. active Not Available Not Available No t Available phentermi ne 37.5 mg tablet TAKE 1/2 TABLET BY MOUTH TWICE DAILY active Not Available Not Available No t Available Vivelle-D ot 0.05 mg/24 hr transderm al patch Apply 1 patch twice a week by transder mal route. 2021 active Not Available Not Available Not Avai lable Vistaril 25 mg capsule Take 1 capsule( s) by mouth qid 02/17 completed Vistaril 25mg Capsules RxNorm: 120655 Allow Substitu tion: True Refill Denied: No Not Available Not Available Not Available ergocalci ferol (vitamin D2) 1,250 mcg (50,000 unit) capsule TAKE ONE CAPSULE BY MOUTH EVERY WEEK active Not Available Not Available No t Available nystatin 100,000 unit/gram topical powder apply to the affected area(s) by topical route 2 times per day 03/25 completed nystatin 100,000 unit/gra m Topical Powder RxNorm: 4075837 Allow Substitu tion: True Refill Denied: No Edited by: Pamela Cuenca) on 03/22/20 20 Stopped by: Pamela Cuenca) on Not Available Not Available Not Available losartan 50 mg-hydroc hlorothia zide 12.5 mg tablet TAKE 1 TABLET BY MOUTH DAILY active Not Available Not Available No t Available fluticaso ne propionat e 50 mcg/actua tion nasal spray,sydnee pension SHAKE LIQUID AND USE 1 SPRAY IN EACH NOSTRIL EVERY DAY active Not Available Not Available No t Available naproxen 500 mg tablet active Not Available Not Available Not Available Estrace 0.01% (0.1 mg/gram) vaginal cream Insert 1 g every week by vaginal route as directed . 2021 active Not Available Not Available Not Avai lable Microgest in 07/18 (21) 1 mg-20 mcg tablet 03/25 completed Microges tin 07/18 21 day RxNorm: 403437 Allow Substitu tion: True Refill Denied: No Refill DateOccu rred: 10/15/19 16 Edited by: Tiana Fuentes) on 01/16/20 20 Stopped by: Tiana Fuentes) on Not Available Not Available Not Available Premarin 0.625 mg/gram vaginal cream apply 0.5 gram by topical route once daily 03/25 completed Premarin 0.625 mg/gram Vaginal Cream RxNorm: 121338 Allow Substitu tion: True Refill Denied: No Edited by: good( Tammi Pamela M) on 03/22/20 20 Stopped by: good( [place], Pamela M) on Not Available Not Available Not Available Allergy Relief (fexofena dine) 180 mg tablet TAKE 1 TABLET BY MOUTH DAILY 03/25 completed Not Available Not Available Not Available Ozempic 0.25 mg or 0.5 mg (2 mg/1.5 mL) subcutane ous pen injector active Not Available Not Available Not Available Wegovy 0.25 mg/0.5 mL subcutane ous pen injector Inject 0.25 mg every week by subcutan eous route. 2021 active Not Available Not Available Not Avai lable Vitals Date Recorded Body weight Body temperature Body mass index (BMI) Body height Systolic blood pressure Diastolic blood pressure Provider Name and Address Organization Details Last Updated DateTime 2 512673. 39 g 97 [degF] 37.1 kg/m2 170.18 cm 128 mm[Hg] 78 mm[Hg] Hetal Whitt [facility] 2 16:17:19 Date Recorded Body height Body mass index (BMI) Body weight Systolic blood pressure Diastolic blood pressure Provider Name and Address Organization Details Last Updated DateTime 05/19/2022 170.18 cm 36 kg/m2 860094.2 5 g 140 mm[Hg] 80 mm[Hg] Felicity Patel [facility] 2 15:34:17 Social History None recorded. Functional Status None recorded. Mental Status None recorded. Family History Relationship Description Onset Age of this Age Resolved Age Notes LastModified by Organization Details LastModified Time Father Malignant tumor of colon 72 [email or web address] Not available 02/28 22:27:38 Mother Type 2 diabetes mellitus [email or web address] Not available 02/28 22:27:50 Sister Type 2 diabetes mellitus [email or web address] Not available 02/28 22:27:50 Medical History Condition Response High Blood Pressure Y Fibroids Y Gynecological History Statement/Question Response Date of Last Pap Smear Duration of Flow (days) Most Recent Mammogram Current Control Method Hysterectom y Age at Menarche 10 Frequency of Cycle (Q days) Obstetrics History GPAL:G 3 P 3 0 0 3 Type Value Full Term 3 Living 3 Total 3 Past Encounters Encounter ID Performer Location Encounter Start Date Encounter Closed Date Diagnosis/Indication Diagnosis SNOMED-CT Code Diagnosis ICD10 Code Diagnosis Note [id number] PATRICE ORDOÑEZ CNM [facility] [address] [place] [address] 03/25/2022 15:51:24 03/25/2022 16:46:09 Gynecologic examination 49765896 Z01.213 [id number] Luis Alberto Ribera MD [facility] [address] [place] [address] 05/19/2022 14:55:39 05/21/2022 14:14:51 Type 2 diabetes mellitus 91075530 E11.9 hgba1c =7.4 and was -2021 Body mass index 30+ - obesity 613676896 Z68.36 COUNSELING was provided today regarding the following topics: healthy eating habits. Patient education given on weight management ., regular exercise. Patient handout given on Fitness, crossfit exercise emphasized . Instructed to strictly limit food calories to 12 oz/day and processed starches., and Instructed to stop the prescribed medication immediatel y if you experience chest pain or shortness of breath.. RECOMMENDA TIONS given include: a graduated exercise program ( 4-5 days per week ), stress reduction, You should follow the recommenda tions for fluid calories, limit processed starches, and diet caloric intake recommenda tions., and Encouraged at least 6 hours of sleep per night.. stressed importance of weight loss. Download cognitive therapy APPs ([facility] [employer], [place]) FOLLOW-UP: Schedule a follow-up visit in 1 month. Menopausal symptom 48239 002 N95.1 discussed any form of transderma l estrogen and possiblyy prometrium 100mg daily o as well as possibly osphena and vagifem... .can do any combinatio n and will call [facility] for any hormone regimen if desires to [facility] in [facility] for estrogen cream vaginally or E,P,and or Testostero ne cream combinatio n and we would use estriol only as a form of estrogen for least amt of stimulatio n to the breast if desiresFOL LOW-UP: Schedule follow-up appointmen ts on a p.r.n. basis. . Atrophic vaginitis 31796 000 N95.2 Health Concerns Section Related Observation LastModified by Organization Detai ls LastModified Time None Recorded Concern Status LastModified by Organization Details LastModified Time None Recorded Advance Directives Directive None Recorded Payers Encounter Date Sequence Insurance Name Policy Number Policy Masters Covered Member ID Masters Member ID Guarantor Name 03/25/2022 1 [employer] Maida S Seals [id number] Maida S Seals 05/19/2022 1 [employer] Maida S Seals [id number] Maida S Seals Notes Date Note Type Note Provider Name and Address Organization Details Recorded Time 03/25/2022 text/html Annual GYNReport ed bypatient.Menstrua l cycle:Normal menses Urinary symptoms:No hematuria; No incontinence Vulva:No genital lesion Vagina:Normal vaginal discharge Breast:No breast pain; No breast lump; No nipple discharge Sexual complaints:No sexual complaints; No pain during intercourse; Normal libido Menopausal Symptoms:No menopausal symptoms; Normal vaginal lubrication Psychological symptoms:No depression; No anxiety; No PMDD Patient is here for annual well women's visit w/pap. Her last pap was in 2016 HPV-. She also wants to discuss the changes her body is going through. PATRICE ORDOÑEZ CNM [address] [place], [address], [facility] 03/25/2022 16:46:01 05/19/2022 text/html pt is here to discuss weight loss medication/healthy lifestyle. Luis Alberto Ribera MD [address] [facility], [place], [address], [facility] Create IV 05/20/2022 21:27:38 OBGyn Episode No OBEpisode recorded.
--- OUTSIDE RECORDS SUMMARY | 2024-08-31 17:23 | XMS_ITS | Clinical Summary ---
Author Organization [facility] Address [address] [place] [address] Care Team Providers Care Solar Tech Name Role Phone Joon Montiel MD Primary Care Provider Source Comments [facility],non-owned Affiliates and Associated Physician Practices is amultiple site organization consisting of ambulatory clinics and hospital sitesin [place], [place], [place] and [place]. This disclosure is being madepursuant to the Care Everywhere program and may not contain all information available regarding this patient. Last updated 18.[facility] Allergies No known active allergies Medications * [...] Comments Blood Pressure 130/90 05/26/2016 4:18 PM INDUSTRIAL INSULATOR Pulse 74 04/03/2016 8:23 AM CDT Temperature 36.9 C (98.4 F) 04/03/2016 8:23 AM CDT Respiratory Rate 16 04/03/2016 8:23 AM CDT Oxygen Saturation 100% 04/03/2016 8:23 AM CDT Inhaled Oxygen Concentration - - Weight 94.8 kg (209 lb) 05/26/2016 4:18 PM INDUSTRIAL INSULATOR Height 171.5 cm (5' 7.5 ) 05/26/2016 4:18 PM INDUSTRIAL INSULATOR Body Mass Index 32.25 05/26/2016 4:18 PM INDUSTRIAL INSULATOR Plan of Treatment Health Maintenance Due Date Last Done Comments COLOGUARD (AGES 45-75) - COL ON CA SCREENING 1965 COLON MONITORING 1965 COLONOSCOPY - COLON CA SCREENING 1965 CT COLONOGRAPHY - COLON CA SCREENING 1965 Colorectal Cancer Screening 1965 FIT - COLON CA SCREENING 1965 FLEX SIG - COLON CA SCREENING 1965 LIPID TESTING 1965 MAMMOGRAM 1965 PAP SMEAR 1965 HIV SCREENING 1980 HEPATITIS C SCREENING 03/27/1983 DTAP/TDAP/TD VACCINES (1 - Tdap) 1984 HEPATITIS B VACCINE (1 of 3 - 19+ 3-dose series) 1984 PNEUMOCOCCAL VACCINE 50+ (1 of 1 - PCV) 2015 ZOSTER VACCINE (1 of 2) 2015 COVID-19 VACCINE (2023-2 5 season) 2024 INFLUENZA VACCINE (#1) 2024 DEPRESSION SCREENING 06/29/2024 HIB VACCINE Aged Out No longer eligi ble based on patient's age to complete this topic HPV VACCINE Aged Out No longer eligi ble based on patient's age to complete this topic MENINGOCOCCAL (Group B) VACCINE Aged Out No longer eligible based on patient's age to complete this topic MENINGOCOCCAL VACCINE Aged Out No bhupnider lenore eligible based on patient's age to complete this topic PNEUMOCOCCAL VACCINE Aged Out No long er eligible based on patient's age to complete this topic Advance Directives * Full Code (Latest Code Status on File) Date Activated Date Inactivated Comments 04/02/2016 1:54 PM 04/03/2016 11:06 AM Care Teams Solar Tech Relationship Specialty Start Date End Date Joon Montiel MD PCP - General Family Medicine 03/26/16
--- NOTE | 2024-08-31 18:08 | ED_ITS ---
HPI - General Adult General Chief complaint: Chest Pain Stated complaint: Chest pain Time Seen by Provider: 08/31/24 15:57 History of Present Illness HPI narrative: Patient is a 59-year-old female who presents ER with right-sided chest pain. Superior aspect and inferior aspect of the breast of the chest wall. Worse with physical movements and twisting. No pain with deep breath. No exertional shortness of breath or cough. Has not found any alleviating factors. Recently had lower extremity a ultrasound that was negative for DVT. Patient has had a lot of epigastric gas and belching. Related Data Home Medications ?Medication ?Instructions ?Recorded ?Confirmed ?Last Taken ?Type ergocalciferol (vitamin D2) 1,250 1,250 mcg PO WEEKLY 03/26/22 03/26/22 Unknown History mcg (50,000 unit) capsule losartan 50 mg-hydrochlorothiazide 1 tablet PO DAILY 03/26/22 03/26/22 Unknown History 12.5 mg tablet topiramate 25 mg tablet 25 mg PO DAILY 03/26/22 03/26/22 Unknown History Allergies Allergy/AdvReac Type Severity Reaction Status Date / Time No Known Allergies Allergy Verified 08/31/24 15:49 Review of Systems 2 Review of Systems: All systems reviewed & are unremarkable except as noted in HPI and below Constitutional: Constitutional: Reports no additional constitutional complaints Cardiovascular: Cardiovascular: Reports no additional cardiovascular complaints Respiratory: Respiratory: Reports no additional respiratory complaints Gastrointestinal: Gastrointestinal: Reports no additional gastrointestinal complaints Musculoskeletal: Musculoskeletal: Reports no additional musculoskeletal complaints PMFSH Past Medical History Medical History (Updated 08/31/24 @ 21:04 by Jarek Carrillo MD) Hypertension Social History Social History Smoking status: Never smoker Alcohol intake: never Substance use: never Substance use type: does not use Living arrangements: with family Spiritual care concerns: No Exam 2 Narrative: GENERAL: Well-appearing, well-nourished, and in no acute distress. HEAD: Normocephalic, atraumatic. ENT: Mucous membranes moist. CHEST: Clear to auscultation. No respiratory distress. No tenderness with palpation anterior chest. HEART: Regular rate and rhythm. Normal peripheral pulses. ABDOMEN: Soft, nontender, nondistended. EXTREMITIES: Normal range of motion. No edema. SKIN: Warm, dry, no rash. NEURO: Alert and oriented x3. PSYCH: Normal mood and affect. Course Course Emergency Course: Patient improving with Toradol and simethicone. Troponin negative. Appropriate for discharge home follow-up with PCP. Vital Signs Vital signs: Vital Signs Temperature 97.8 F 08/31/24 15:50 Pulse Rate 81 08/31/24 15:50 Respiratory Rate 17 08/31/24 15:50 Blood Pressure 139/76 08/31/24 15:50 Pulse Oximetry 100 08/31/24 15:50 Oxygen Delivery Room Air 08/31/24 15:50 Temperature 97.8 F 08/31/24 15:50 Pulse Rate 72 08/31/24 19:03 Respiratory Rate 14 08/31/24 19:03 Blood Pressure 120/92 H 08/31/24 19:03 Pulse Oximetry 97 08/31/24 19:03 Oxygen Delivery Room Air 08/31/24 15:50 Medical Decision Making Vital Signs Vital Signs: Vital Signs Temperature 97.8 F 08/31/24 15:50 Pulse Rate 81 08/31/24 15:50 Respiratory Rate 17 08/31/24 15:50 Blood Pressure 139/76 08/31/24 15:50 Pulse Oximetry 100 08/31/24 15:50 Oxygen Delivery Room Air 08/31/24 15:50 Temperature 97.8 F 08/31/24 15:50 Pulse Rate 72 08/31/24 19:03 Respiratory Rate 14 08/31/24 19:03 Blood Pressure 120/92 H 08/31/24 19:03 Pulse Oximetry 97 08/31/24 19:03 Oxygen Delivery Room Air 08/31/24 15:50 Lab Data 08/31/24 15:59 08/31/24 15:59 Labs: Lab Results 08/31/24 Range/Units 15:59 WBC 9.1 (4.5-10.0) K/mm3 RBC 4.41 (4.2-5.4) M/mm3 Hgb 12.5 (12.0-15.0) g/dL Hct 38.7 (37.0-47.0) % MCV 87.8 (80-100) fl MCH 28.3 (26-34) pg MCHC 32.3 (32-36) g/dl RDW 13.5 (11.5-14.5) % Plt Count 314 (150-375) k/mm3 MPV 9.6 (7.4-10.4) fl Immature Gran % (Auto) 0.1 (0-0.5) % Neut % (Auto) 34.5 L (45.5-73.1) % Lymph % (Auto) 55.2 H (18.3-44.2) % [place] % (Auto) 8.3 (2.6-8.5) % Eos % (Auto) 1.6 (0-4.4) % Baso % (Auto) 0.3 (0.2-1.2) % Lymph # (Auto) 5.04 H (0.9-3.2) K/mm3 [place] # (Auto) 0.8 H (0.1-0.6) K/mm3 Eos # (Auto) 0.2 (0-0.3) K/mm3 Baso # (Auto) 0.0 (0.0-0.1) K/mm3 Abs Immat Gran (auto) 0.01 (0.00-0.031) K/mm3 Absolute Neuts (auto) 3.1 (1.3-6.7) K/mm3 Absolute Nucleated RBC 0.000 (0.0-0.012) K/mm3 Nucleated RBC % 0.0 (0.0-0.2) % PT 12.5 (11.1-14.7) Seconds INR 0.9 APTT 27.2 (22.3-36.8) Seconds Sodium 138 (137-145) mmol/L Potassium 3.9 (3.4-5.0) mmol/L Chloride 98 (98-107) mmol/L Carbon Dioxide 31 H (22-30) mmol/L Anion Gap 9 (4-12) mmol/L BUN 23 H (7-17) mg/dL Creatinine 0.89 (0.7-1.0) mg/dL Estim Creat Clear Calc Not Reportable Estimated GFR > 60 (59 - ) Glucose 100 (65-110) mg/dL Calcium 9.1 (8.4-10.2) mg/dL Total Bilirubin 0.3 (0.2-1.3) mg/dL AST 23 (14-36) U/L ALT 16 (6-35) U/L Alkaline Phosphatase 82 (38-126) U/L Troponin I < 0.012 (0.000-0.034) ng/mL Total Protein 8.0 (6.3-8.2) g/dL Albumin 4.0 (3.5-5.1) g/dL Lipase 196 (23-300) U/L Imaging Data Radiologist's impression: ITS Impressions Chest X-Ray 08/31/24 16:25 IMPRESSION: 1. No acute cardiopulmonary disease. ECG Data EKG #1: ECG completion date: 08/31/24 ECG completion time: 15:55 EKG Interpretation: normal rate (82), sinus rhythm, no ST changes, normal QRS, normal QT and NL axis Discharge Plan Discharge Clinical Impression: Abdominal bloating with cramps, Chest pain Patient Disposition: Home, Self-Care Condition: Stable Instructions: Chest Pain (ED), Gas and Bloating (ED) Additional Instructions: Please return to the emergency department if you develop severe and persistent chest pain, difficulty breathing, dizziness, leg swelling or if you are coughing up blood as these can be signs of a medical emergency. Please call your doctor for a follow up appointment to determine the need for further testing. Patient Language: Paraguayan Prescriptions: New naproxen 375 mg tablet 375 mg PO BID Qty: 14 0RF simethicone 125 mg capsule 125 mg PO QID Qty: 20 0RF Rx Instructions: administer after meals and at bedtime No Action topiramate 25 mg tablet 25 mg PO DAILY ergocalciferol (vitamin D2) 1,250 mcg (50,000 unit) capsule 1,250 mcg PO WEEKLY losartan-hydrochlorothiazide 50-12.5 mg tablet 1 tablet PO DAILY amoxicillin-pot clavulanate 875-125 mg tablet 1 tablet PO Q12H Qty: 14 0RF fluticasone propionate [24 Hour Allergy Relief] 50 mcg/actuation spray,suspension 1 spray intranasal BID Qty: 16 0RF Rx Instructions: administer into each nostril naproxen 500 mg tablet 500 mg PO BID PRN (Reason: pain) Qty: 30 0RF ciprofloxacin-dexamethasone [Ciprodex] 0.3-0.1 % drops,suspension 4 drp EACH EAR Q12H 7 Days Qty: 7.5 0RF Follow-up/Referrals: Tiana,Joon Diaz MD [Primary Care Provider] - 1 Week Quality HEART score for chest pain patients History: slightly suspicious ECG: normal Age: > 45 and < 65 years Risk factors: 1 or 2 risk factors Troponin: < or = to 1x normal limit Heart score: 2
[2024-08-31 19:03] VITALS: BP 120/92; PULSE 72; RESP 14; O2SAT 97
== END 2024-08-31 19:05 | disposition home or self-care (01) ==
PROVIDERS: Emergency Medicine; Emergency Provider Emergency Medicine; PCP Family Medicine
DX: R07.9 Chest pain, unspecified (principal); R14.0 Abdominal distension (gaseous); R10.9 Unspecified abdominal pain; I10 Essential (primary) hypertension; R94.31 Abnormal electrocardiogram [ECG] [EKG]
CPT/HCPCS: 36415; 71046; 80053; 83690; 84484; 85025; 85610; 85730; 93005; 96374; 99284; A9270; J1885

== ENCOUNTER 2024-10-29 13:35 | Emergency (ER) | payer OTHER, SELFPAY ==
--- NOTE | ~2024-10-29 | CT_ITS ---
EXAMINATION: CT abdomen pelvis w con DATE: 10/29/2024 16:41 INDICATION: Left mid axillary abdominal pain TECHNIQUE: Computed tomography (CT) of the abdomen and pelvis was performed with 100 mL Omnipaque-350 intravenous contrast. Automated exposure control and iterative reconstruction technique were employe d. The dose-length product was 752.45 mGy-cm. COMPARISON: None. FINDINGS: Lower thorax: Bibasilar scar/atelectasis. Liver: Normal. Biliary/Gallbladder: Gallbladder is normal. No bile duct dilation. Pancreas: No mass or duct dilation. Spleen: Normal. Adrenals:No mass. Kidneys: No suspicious mass, obstructing stone, or hydronephrosis. Bilateral simple renal cysts and l esions that are too small to characterize but also likely represent cysts. Focal cortical thinning/sc arring in the left upper pole. GI tract: Mild distal esophageal and gastric wall edema. No small or large bowel dilation. Normal ty endix. Diverticulosis without diverticulitis. Mesentery/Peritoneum: No ascites, mass, or free air. Retroperitoneum: No mass. Pelvis: Empty urinary bladder. Absent uterus. Normal bilateral ovaries.. Soft Tissues: Soft tissues and body wall unremarkable. Bones: No acute osseous finding. Multilevel degenerative disc disease lumbar spine, with multilevel moderate central canal narrowing and bilateral neural foraminal narrowing. IMPRESSION: Mild esophagitis/gastritis. Otherwise, no acute abdominopelvic process detected. Reviewed, dictated and finalized at location K.
--- NOTE | ~2024-10-29 | XR_ITS ---
EXAMINATION: XR chest 1V portable Exam Date/Time: 10/29/2024 15:33 CDT HISTORY: Left abdominal pain Comparison: 08/31/2024. RESULT: Lines, tubes, and devices: None. Lungs and pleura: Clear. Cardiomediastinal silhouette: Stable. Other: No acute osseous or upper abdominal finding. IMPRESSION: No acute cardiopulmonary process. Reviewed, dictated and finalized at location K.
[2024-10-29 13:38] VITALS: BP 178/97; PULSE 76; RESP 18; TEMP 36.6; O2SAT 100
--- NOTE | 2024-10-29 14:59 | ED_ITS ---
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 Sharp, stabbing, worse with certain position especially the laying down on the left side. She denies any fever, chills, nausea, vomiting, diarrhea, constipation, shortness of breath or chest pain. Patient denies any recent trauma. Patient report having chronic pain at the right knee which gradually getting worse over the last few months, MRI showed meniscus, scheduled for surgery. Patient believes that she need to get CT scan of the abdomen to be sure nothing unusual inside. Related Data Home Medications ?Medication ?Instructions ?Recorded ?Confirmed ?Last Taken ?Type ergocalciferol (vitamin D2) 1,250 1,250 mcg PO WEEKLY 03/26/22 03/26/22 Unknown History mcg (50,000 unit) capsule losartan 50 mg-hydrochlorothiazide 1 tablet PO DAILY 03/26/22 03/26/22 Unknown History 12.5 mg tablet topiramate 25 mg tablet 25 mg PO DAILY 03/26/22 03/26/22 Unknown History Allergies Allergy/AdvReac Type Severity Reaction Status Date / Time No Known Allergies Allergy Verified 10/29/24 13:36 Review of Systems 2 Review of Systems: All systems reviewed & are unremarkable except as noted in HPI and below PMFSH Past Medical History Medical History Hypertension Social History Social History Smoking status: Never smoker Alcohol intake: never Substance use: never Substance use type: does not use Living arrangements: with family Spiritual care concerns: No Exam 2 Narrative: General appearance: Well-developed, well-nourished Skin: Normal color Head: Normocephalic, nontraumatic Eyes: Clear conjunctiva ENT: Oropharynx normal, ears normal, nose normal Neck: Supple, nontender Chest and respiratory: Airway patent, no respiratory distress, no accessory muscle use Heart: Regular rate/rhythm Abdomen: Soft, nontender, no organomegaly, quiet bowel sounds Vascular: Normal peripheral pulses, normal capillary refill. Musculoskeletal: Severe tenderness with light palpation of the left mid axillary abdomen and chest, no bruises, no swelling or rash Patient limping to avoid putting weight on the right lower extremity because of knee meniscus injury Neurologic: Alert and oriented ?3, [employer] is normal as tested, no gross motor deficit Course Vital Signs Vital signs: Vital Signs Temperature 36.6 C 10/29/24 13:38 Pulse Rate 76 10/29/24 13:38 Respiratory Rate 18 10/29/24 13:38 Blood Pressure 178/97 H 10/29/24 13:38 Pulse Oximetry 100 10/29/24 13:38 Oxygen Delivery Room Air 10/29/24 13:38 Temperature 36.6 C 10/29/24 15:00 Pulse Rate 67 10/29/24 15:00 Respiratory Rate 16 10/29/24 15:00 Blood Pressure 166/85 H 10/29/24 15:00 Pulse Oximetry 100 10/29/24 15:00 Oxygen Delivery Room Air 10/29/24 15:00 Medical Decision Making [facility] Narrative Medical decision making narrative: Patient came with left mid exam abdominal pain Vital signs showing blood pressure 178/97. Patient is telling me that she have history of hypertension but does not take medications on time or regularly. Physical examination showing severe tenderness left mid axillary abdomen chest. Differential diagnosis musculoskeletal secondary to progression of right knee pain patient putting more weight on the left lower extremity which high likely causing that can a pain Pneumonia, urinary tract infection, colitis, diverticulitis, splenic infarction. Blood workup today includes CBC, CMP, lipase showed NO SIGNIFICANT ABNORMALITY, NORMAL TROPONIN LEVEL Urinalysis showed NO EVIDENCE OF INFECTION Chest x-ray showed WITHIN NORMAL LIMIT CT abdomen and pelvis with IV contrast showed NO SIGNIFICANT ABNORMALITY TO EXPLAIN PATIENT LEFT ABDOMINAL PAIN. DIAGNOSIS MUSCULAR PAIN RELATED TO PHYSICAL ACTIVITY AND RIGHT KNEE MENISCUS INJURY DISCHARGED ON NAPROXEN, CYCLOBENZAPRINE, AND FOLLOW-UP WITH HER FAMILY PHYSICIAN THE PT WAS DISCHARGED TO HOME.THE PT,S CONDITION UPON DISCHARGE WAS FAIR,EDUCATION WAS PROVIDED TO THE PT IN REFERENCE TO THE FINAL IMPRESSION,DISCHARGE STUDY RESULTS,TREATMENT,PROGNOSIS AND NEED FOR FOLLOW UP . Differential Diagnosis Differential Diagnosis: As above Vital Signs Vital Signs: Vital Signs Temperature 36.6 C 10/29/24 13:38 Pulse Rate 76 10/29/24 13:38 Respiratory Rate 18 10/29/24 13:38 Blood Pressure 178/97 H 10/29/24 13:38 Pulse Oximetry 100 10/29/24 13:38 Oxygen Delivery Room Air 10/29/24 13:38 Temperature 36.6 C 10/29/24 15:00 Pulse Rate 67 10/29/24 15:00 Respiratory Rate 16 10/29/24 15:00 Blood Pressure 166/85 H 10/29/24 15:00 Pulse Oximetry 100 10/29/24 15:00 Oxygen Delivery Room Air 10/29/24 15:00 Lab Data 10/29/24 16:09 10/29/24 16:09 Labs: Lab Results 10/29/24 10/29/24 Range/Units 16:09 16:30 WBC 8.6 (4.5-10.0) K/mm3 RBC 4.33 (4.2-5.4) M/mm3 Hgb 12.2 (12.0-15.0) g/dL Hct 38.4 (37.0-47.0) % MCV 88.7 (80-100) fl MCH 28.2 (26-34) pg MCHC 31.8 L (32-36) g/dl RDW 14.5 (11.5-14.5) % Plt Count 314 (150-375) k/mm3 MPV 9.4 (7.4-10.4) fl Immature Gran % (Auto) 0.2 (0-0.5) % Neut % (Auto) 43.4 L (45.5-73.1) % Lymph % (Auto) 47.6 H (18.3-44.2) % [place] % (Auto) 6.8 (2.6-8.5) % Eos % (Auto) 1.7 (0-4.4) % Baso % (Auto) 0.3 (0.2-1.2) % Lymph # (Auto) 4.08 H (0.9-3.2) K/mm3 [place] # (Auto) 0.6 (0.1-0.6) K/mm3 Eos # (Auto) 0.2 (0-0.3) K/mm3 Baso # (Auto) 0.0 (0.0-0.1) K/mm3 Abs Immat Gran (auto) 0.02 (0.00-0.031) K/mm3 Absolute Neuts (auto) 3.7 (1.3-6.7) K/mm3 Absolute Nucleated RBC 0.000 (0.0-0.012) K/mm3 Nucleated RBC % 0.0 (0.0-0.2) % Sodium 141 (137-145) mmol/L Potassium 4.1 (3.4-5.0) mmol/L Chloride 106 (98-107) mmol/L Carbon Dioxide 28 (22-30) mmol/L Anion Gap 7 (4-12) mmol/L BUN 15 D (7-17) mg/dL Creatinine 0.74 (0.7-1.0) mg/dL Estim Creat Clear Calc 87 ml/min Estimated GFR > 60 (59 - ) Glucose 138 H (65-110) mg/dL Calcium 9.1 (8.4-10.2) mg/dL Total Bilirubin 0.3 (0.2-1.3) mg/dL AST 27 (14-36) U/L ALT 23 (6-35) U/L Alkaline Phosphatase 89 (38-126) U/L Total Protein 8.0 (6.3-8.2) g/dL Albumin 4.2 (3.5-5.1) g/dL Lipase 58 (23-300) U/L Urine Color Yellow (Yellow) Urine Appearance Clear (Clear) Urine pH 5.0 (5.0-9.0) Ur Specific [place] 1.025 (1.001-1.035) Urine Protein Negative (Negative) mg/dL Urine Glucose (UA) Negative (Negative) mg/dL Urine Ketones Negative (Negative) mg/dL Ur Blood (Man) Negative (Negative) Urine Nitrate Negative (Negative) Urine Bilirubin Negative (Negative) Urine Urobilinogen 0.2 (<2.0) mg/dL Leukocyte Esterase Rfl Negative (Negative) RENAN/UL Imaging Data Radiologist's impression: Impressions Chest X-Ray 10/29/24 15:57 IMPRESSION: No acute cardiopulmonary process. Abdomen/Pelvis CT 10/29/24 18:01 IMPRESSION: Mild esophagitis/gastritis. Otherwise, no acute abdominopelvic process detected. Critical Care Time Critical Care Time Critical Care Time: No Discharge Plan Discharge Clinical Impression: Abdominal muscle pain Patient Disposition: Home Condition: Stable Instructions: Acute Abdominal Pain (DC) Additional Instructions: RETURN IF SYMPTOMS ARE WORSENING , CALL YOUR FAMILY PHYSICIAN FOR APPOINTMENT, TAKE TYLENOL NEEDED FOR ACHES AND PAIN, NAPROXEN 500 EVERY 12 HOURS NEEDED CONTINUE HOME MEDICATIONS. Patient Language: Japanese Prescriptions: New cyclobenzaprine 10 mg tablet 10 mg PO TID PRN (Reason: muscle spasm) Qty: 20 0RF No Action topiramate 25 mg tablet 25 mg PO DAILY ergocalciferol (vitamin D2) 1,250 mcg (50,000 unit) capsule 1,250 mcg PO WEEKLY losartan-hydrochlorothiazide 50-12.5 mg tablet 1 tablet PO DAILY amoxicillin-pot clavulanate 875-125 mg tablet 1 tablet PO Q12H Qty: 14 0RF fluticasone propionate [24 Hour Allergy Relief] 50 mcg/actuation spray,suspension 1 spray intranasal BID Qty: 16 0RF Rx Instructions: administer into each nostril naproxen 500 mg tablet 500 mg PO BID PRN (Reason: pain) Qty: 30 0RF ciprofloxacin-dexamethasone [Ciprodex] 0.3-0.1 % drops,suspension 4 drp EACH EAR Q12H 7 Days Qty: 7.5 0RF naproxen 375 mg tablet 375 mg PO BID Qty: 14 0RF simethicone 125 mg capsule 125 mg PO QID Qty: 20 0RF Rx Instructions: administer after meals and at bedtime Follow-up/Referrals: Tiana,Joon Diaz MD [Primary Care Provider] -
[2024-10-29 15:00] VITALS: BP 166/85; PULSE 67; RESP 16; TEMP 36.6; O2SAT 100
--- NOTE | 2024-10-29 15:59 | PC.NURSE ---
This RN attempted x1 for peripheral IV access. Attempt unsuccessful. Pt. would not allow this RN to stick her again, but states that fine specimen of a man that just popped his head in here can. Pt. educated that Fidel is a tech and cannot start IVs. She needs an IV d/t IV meds ordered and a CT with contrast. Pt. agreeable to let SEAN Stephen attempt IV. Zafar to bedside.
[2024-10-29 16:13] LABS: Basophils Percent Auto 0.3 % (0.2-1.2); Eosinophils Absolute Auto 0.2 K/mm3 (0-0.3); Eosinophils Percent Auto 1.7 % (0-4.4); Hematocrit 38.4 % (37.0-47.0); Hemoglobin 12.2 g/dL (12.0-15.0); Immature Granulocyte Absolute 0.02 K/mm3 (0.00-0.031); Immature Granulocyte Percent A 0.2 % (0-0.5); Lymphocytes Absolute Auto 4.08 K/mm3 (0.9-3.2); Lymphocytes Percent Auto 47.6 % (18.3-44.2); Mean Corpuscular HGB Conc 31.8 g/dl (32-36); Mean Corpuscular Hemoglobin 28.2 pg (26-34); Mean Corpuscular Volume 88.7 fl (80-100); Mean Platelet Volume 9.4 fl (7.4-10.4); Monocytes Absolute Auto 0.6 K/mm3 (0.1-0.6); Monocytes Percent Auto 6.8 % (2.6-8.5); Neutrophils Absolute Auto 3.7 K/mm3 (1.3-6.7); Neutrophils Percent Auto 43.4 % (45.5-73.1); Platelet Count Result 314 k/mm3 (150-375); Red Blood Count 4.33 M/mm3 (4.2-5.4); Red Cell Distribution Width 14.5 % (11.5-14.5); White Blood Count 8.6 K/mm3 (4.5-10.0)
[2024-10-29 16:22] LABS: Alanine Aminotransferase 23 U/L (6-35); Albumin Level 4.2 g/dL (3.5-5.1); Alkaline Phosphatase 89 U/L (38-126); Anion Gap 7 mmol/L (4-12); Aspartate Amino Transferase 27 U/L (14-36); Bilirubin,Total 0.3 mg/dL (0.2-1.3); Blood Urea Nitrogen 15 mg/dL (7-17); Calcium 9.1 mg/dL (8.4-10.2); Carbon Dioxide 28 mmol/L (22-30); Chloride 106 mmol/L (98-107); Estimated CRCL calculation 87 ml/min; Estimated Glomerular Filt Rate > 60; Glucose 138 mg/dL (65-110); Lipase 58 U/L (23-300); Potassium 4.1 mmol/L (3.4-5.0); Sodium 141 mmol/L (137-145)
--- NOTE | 2024-10-29 16:26 | PC.NURSE ---
Pt. to restroom to provide urine sample.
--- NOTE | 2024-10-29 16:30 | PC.NURSE ---
Pt. to CT.
--- OUTSIDE RECORDS SUMMARY | 2024-10-29 16:36 | XMS_ITS | Clinical Summary ---
Author Organization [facility] Address [address] [place] [address] Care Team Providers Care Universal Grinder Operator Name Role Phone Joon Montiel MD Primary Care Provider Source Comments [facility],non-owned Affiliates and Associated Physician Practices is amultiple site organization consisting of ambulatory clinics and hospital sitesin [place], [place], [place] and [place]. This disclosure is being madepursuant to the Care Everywhere program and may not contain all information available regarding this patient. Last updated 18.[facility] Allergies No known active allergies Medications * Be aware that medications may not be up to date on this document. Alwaysverify current medications with the patient. 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 Pulse 74 04/03/2016 8:23 AM CDT Temperature 36.9 C (98.4 F) 04/03/2016 8:23 AM CDT Respiratory Rate 16 04/03/2016 8:23 AM CDT Oxygen Saturation 100% 04/03/2016 8:23 AM CDT Inhaled Oxygen Concentration - - Weight 94.8 kg (209 lb) 05/26/2016 4:18 PM [employer] S[employer]LE DRILLER Height 171.5 cm (5' 7.5 ) 05/26/2016 4:18 PM [employer] SCRE[employer]LE DRILLER Body Mass Index 32.25 05/26/2016 4:18 PM BALANCE WHE[employer] SCRE[employer]LE DRILLER Plan of Treatment Health Maintenance Due Date Last Done Comments COLOGUARD (AGES 45-75) - COL ON CA SCREENING 1965 COLON MONITORING 1965 COLONOSCOPY - COLON CA SCREENING 1965 CT COLONOGRAPHY - COLON CA SCREENING 1965 Colorectal Cancer Screening 1965 FIT - COLON CA SCREENING 1965 FLEX SIG - COLON CA SCREENING 1965 LIPID TESTING 1965 MAMMOGRAM 1965 HIV SCREENING 1980 HEPATITIS C SCREENING 03/27/1983 DTAP/TDAP/TD VACCINES (1 - Tdap) 1984 HEPATITIS B VACCINE (1 of 3 - 19+ 3-dose series) 1984 PNEUMOCOCCAL VACCINE 50+ (1 of 1 - PCV) 2015 ZOSTER VACCINE (1 of 2) 2015 COVID-19 VACCINE ( - 2023-2 5 season) 2024 DEPRESSION SCREENING 06/29/2024 INFLUENZA VACCINE (Season Ended) 2025 HIB VACCINE Aged Out No longer eligi ble based on patient's age to complete this topic HPV VACCINE Aged Out No longer eligi ble based on patient's age to complete this topic MENINGOCOCCAL (Group B) VACC INE SHARED DECISION-MAKING Aged Out No longer eligibl e based on patient's age to complete this topic MENINGOCOCCAL GROUPS A/C/Y/W VACCINE Aged Out No longer eligible b ased on patient's age to complete this topic Insurance [employer] [facility] Address: [address] [id number] [employer] Advance Directives * Full Code (Latest Code Status on File) Date Activated Date Inactivated Comments 04/02/2016 1:54 PM 04/03/2016 11:06 AM Care Teams Universal Grinder Operator Relationship Specialty Start Date End Date Joon Montiel MD PCP - General Family Medicine 03/26/16
--- OUTSIDE RECORDS SUMMARY | 2024-10-29 16:36 | XMS_ITS | Data Portability ---
Author Organization [facility] , [facility] Address [address] [place] [address] Assessment Encounter Date Assessment Date Assessment LastModified by Organization Details LastModified Time 03/25/2022 03/25/2022 56 y.o. here for annual exam. - S/P hysterectomy - Routine labs done with PCP - Mammo last month WNL, - DEXA at age 65 - Depression screen NEG - BMI counseling, diet and exercise reviewed, desires weight management, plans to schedule with [facility] to discuss medications. diet and lifestyle modifications discussed. - RTO for annual or PRN lduffe Not available 03/25/2022 16:45:02 Plan of Treatment Reminders Order Date Submit Date Provider Last Modified By Organization Details Last Modified Time Details Appointments None recorded. Lab testosteron e, free + total, serum 2021 [facility], [address] [facility], [place], [address], 12:25:18 Referral None recorded. Procedures None recorded. Surgeries None recorded. Imaging None recorded. Medication Orders Estrace 0.01% (0.1 mg/gram) vaginal cream 2021 [facility] #[id number], [address] [facility], [place], [place], [id number], 16:36:02 Vivelle-Dot 0.05 mg/24 hr transdermal patch 2021 [facility][id number], [address], [place], [place], [id number], 16:36:03 Wegovy 0.25 mg/0.5 mL subcutaneou s pen injector 2021 [facility] #[id number], [address] , [place], [place], [phone], 16:32:35 phentermine 37.5 mg tablet 2021 [facility] #[id number], [address], [place], [place], [phone], 16:32:37 Patient TargetsNo targets recorded. Patient InstructionsNo instructions recorded. Reason for Referral None Reported. Results Created Date Observation Date Name Description Value Unit Range Abnormal Flag Note LastModifiedBy Organization Detail LastModifiedTime 05/23/2005/23/2022 TESTO STERO NE, FREE (DIAL YSIS) AND TOTAL ,MS testosterone , total, MS 20 NG/dL 2-45 For addit ional infor lionel briggs e refer to https ://ed ucati on.qu delon SourceTour. com/f aq/FA Q165 (This link is being provi ded for infor scotty nal/e ducat ional purpo ses only. ) (Note ) This test was devel oped and its oh tical perfo rmanc e kely cteri stics have been deter mined by [employer]. It has not been clear ed or appro ryann by the FDA. This assay has been valid ated pursu ant to the CLIA regul ation s and is used for clini andriy purpo ses. Not Available [facility] [employer] [facility] [address] [place], [address], 05/23/2022 12:25:18 05/23/20 22 05/23/2022 TESTO STERO NE, FREE (DIAL YSIS) AND TOTAL ,MS testosterone , free 3.2 pg/mL 0.1-6. 4 (Note ) This test was devmiguel gardner and its oh tical perfo rmanc e kely cteri stics have been deter mined by [employer]. It has not been clear ed or appro ryann by the FDA. This assay has been valid ated pursu ant to the CLIA regul ation s and is used for clini andriy purpo ses. [facility] n [address] [facility] [address] [place] [address] [phone] Sathish fitzpatrick MD NO COLLE CTION DATE RECEI RYANN. WE HAVE USED THE DATE THE SPECI MEN WAS RECEI RYANN BY THIS LABOR ATORY THE COLLE CTION DATE. IF THIS IS INCOR RECT, PLEAS E CONTA CT CLIEN T SERVI MARCY. PHONE NUMBE R: [phone] Not Available [facility] [place] [address] [place], [address], 05/23/2022 12:25:18 Result Notes None recorded. Problems Name Problem SNOMED Code Status Onset Date Resolution Date Notes Provider Name and Address Organization Details Recorded Time Clinical finding Active 2015 Pain in left leg; Progress : Stable Added By: Jacqueline Feliciano Add to Current Problems : YES ProblemS tatus: Current Not Available [facility] 2 07:46:31 Abnormal weight gain 867513253 Active 2019 Abnormal weight gain; Progress : Stable Added By: Tiana Stratton Add to Current Problems : YES ProblemS tatus: Current Not Available [facility] 2 07:46:26 Polyp of corpus uteri 97629595 Active 2015 Polyp of corpus uteri; Progress : Stable Added By: Jacqueline Feliciano Add to Current Problems : YES ProblemS tatus: Current Uterine polyp; Location : None Progress : Stable Added By: Jacqueline Feliciano Add to Current Problems : YES ProblemS tatus: Current Not Available [facility] [address] 07:46:[address] Concept Completed 201508/21/2016 Encounte r for follow-u p examinat ion after complete d treatmen t for conditio ns other than malignan t neoplasm ; Progress : Stable Added By: Zahra Segovia Add to Current Problems : NO ProblemS tatus: Resolve Not Available [facility] 2 07:46:21 Surgical follow-u p - normal 139219228 Completed 201508/21/2016 Follow-u p exam followin g surgery; Severity : Moderate Progress : Stable Added By: Zahra Segovia Add to Current Problems : NO ProblemS tatus: Resolve Not Available [facility] 1 05:38:23 Neoplasm of body of uterus 405067270 Active 2015 Uterine fibroids ; Progress : Stable Added By: Maricarmen Encarnacion Add to Current Problems : YES ProblemS tatus: Current Not Available [facility] 2 07:46:54 Leukorrh ea 282863203 Completed 201512/30/2015 Vaginal Discharg e; Severity : Moderate Progress : Stable Added By: Maricarmen Encarnacion Add to Current Problems : NO ProblemS tatus: Resolve Not Available [facility] 1 05:38:23 Pelvic and perineal pain 190771568 Completed 201507/16/2016 Pelvic and perineal pain; Progress : Stable Added By: Jacqueline Rodriguez Add to Current Problems : NO ProblemS tatus: Resolve Not Available [facility] 2 07:46:31 Menopaus e present 195317612 Active 2019 Menopaus al and female climacte no states; Progress : Stable Added By: Tiana Stratton Add to Current Problems : YES ProblemS tatus: Current Not Available [facility] 2 07:46:31 Sampling of vagina for Papanico laou smear Active 2019 Encounte r for gynecolo gical examinat ion (general ) (routine ) without abnormal findings ; Progress : Stable Added By: Thu Amato Add to Current Problems : YES ProblemS tatus: Current Not Available [facility] 2 07:46:50 Low back pain 960091665 Active 2015 Back Pain, Lower; Location : None Progress : Stable Added By: Jacqueline Feliciano Add to Current Problems : NO ProblemS tatus: Current Low back pain; Progress : Stable Added By: Jacqueline Feliciano Add to Current Problems : YES ProblemS tatus: Current Not Available [facility] 2 07:46:26 Female genital organ symptoms 945882378 Completed 201507/16/2016 Pelvic pain; Progress : Stable Added By: Jacqueline Rodriguez Add to Current Problems : NO ProblemS tatus: Resolve Not Available [facility] 2 07:46:26 Atrophic vaginiti s 94482497 Active 2019 Postmeno pausal atrophic vaginiti s; Progress : Stable Added By: Tiana Stratton Add to Current Problems : YES ProblemS tatus: Current Not Available [facility] 2 07:46:26 Intramur al leiomyom a of uterus 86799749 Active 2015 Intramur al leiomyom a of uterus; Progress : Stable Added By: Maricarmen Encarnacion Add to Current Problems : YES ProblemS tatus: Current Not Available [facility] 2 07:46:31 Screenin g mammogra phy Active 2019 Encounte r for screenin g mammogra m for malignan t neoplasm of breast; Progress : Stable Added By: Thu Amato Add to Current Problems : YES ProblemS tatus: Current Not Available [facility] 2 07:46:50 Postoper ative follow-u p visit Completed 201508/21/2016 Follow-u p exam followin g surgery; Location : None Progress : Stable Added By: Zahra Segovia Add to Current Problems : YES ProblemS tatus: Resolve Not Available [facility] 2 07:46:50 Body mass index 30+ - obesity 034303016 Active 2021 Shayy rodríguez, [facility] 2 11:41:28 Problem Notes None recorded. Procedures Surgical History Date Name Laterality Status Provider Name and Address Organization Details Recorded Time 11/13/19 hysteroscopy completed [facility] 03/22/2022 22:27:21 repair of umbilical hernia completed [facility] 03/22/2022 22:26:31 hysterectomy [address]y Rai [facility] 03/22/2022 22:26:47 Imaging Results None recorded. Procedure [...] 02/15 completed Neuronti n 300mg Capsules RxNorm: 339801 Allow Substitu tion: True Refill Denied: No For Problem: Leg pain Not Available Not Available Not Available ibuprofen 800 mg tablet 1 p.o. every 8 hours as needed 02/03 completed Ibuprofe n 800mg Tablet RxNorm: 641826 Allow Substitu tion: True Refill Denied: No [...] completed Diflucan 150 mg oral tablet RxNorm: 032360 Allow Substitu tion: True Refill Denied: No [...] qid 02/17 completed Vistaril 25mg Capsules RxNorm: 637065 Allow Substitu tion: True Refill Denied: No Not Available Not Available Not Available ergocalci ferol (vitamin D2) 1,250 mcg (50,000 unit) capsule TAKE ONE CAPSULE BY MOUTH EVERY WEEK active Not Available Not Available No t Available nystatin 100,000 unit/gram topical powder apply to the affected area(s) by topical route 2 times per day 03/25 completed nystatin 100,000 unit/gra m Topical Powder RxNorm: 6321277 Allow Substitu tion: True Refill Denied: No [...] completed Microges tin 07/18 21 day RxNorm: 874917 Allow Substitu tion: True Refill Denied: No Refill DateOccu rred: 10/15/19 16 Edited by: Tiana Fuentes) on 01/16/20 20 Stopped by: Tiana Fuentes) on Not Available Not Available Not Available Premarin 0.625 mg/gram vaginal cream apply 0.5 gram by topical route once daily 03/25 completed Premarin 0.625 mg/gram Vaginal Cream RxNorm: 595048 Allow Substitu tion: True Refill Denied: No Edited by: good( Tammi Pamela M) on 03/22/20 20 Stopped by: good( Tammi, Pamela M) on Not Available Not Available [...] Address Organization Details Last Updated DateTime 2 834059. 39 g 97 [degF] 37.1 kg/m2 170.18 cm 128 mm[Hg] 78 mm[Hg] Hetal Whitt [facility] 2 16:17:19 Date Recorded Body height Body mass index (BMI) Body weight Systolic blood pressure Diastolic blood pressure Provider Name and Address Organization Details Last Updated DateTime 05/19/2022 170.18 cm 36 kg/m2 557290.2 5 g 140 mm[Hg] 80 mm[Hg] Felicity Patel [facility] 2 15:34:17 Social History None recorded. [...] SNOMED-CT Code Diagnosis ICD10 Code Diagnosis Note [id number] PATRICE ORDOÑEZ CNM [facility] [address] [place] [address] 03/25/2022 15:51:24 03/25/2022 16:46:09 Gynecologic examination 90337839 Z01.320 [id number] Luis Alberto Ribera MD [facility] [address] [place] [address] 05/19/2022 14:55:39 05/21/2022 14:14:51 Type 2 diabetes mellitus 80945761 E11.9 hgba1c =7.4 and was -2021 Body mass index 30+ - obesity 377636437 Z68.36 COUNSELING was provided today regarding the [...] weight loss. Download cognitive therapy APPs ([facility], [place]) FOLLOW-UP: Schedule a follow-up visit in 1 month. Menopausal symptom 02637 002 N95.1 discussed any form of transderma l estrogen and possiblyy prometrium 100mg daily o as well as possibly osphena and vagifem... .can do any combinatio n and will call [facility] for any hormone regimen if desires to [facility] in [facility] for estrogen cream vaginally or E,P,and or Testostero ne cream combinatio n and we would use estriol only as a form of estrogen for least amt of stimulatio n to the breast if desiresFOL LOW-UP: Schedule follow-up appointmen ts on a p.r.n. basis. . Atrophic vaginitis 19624 000 N95.2 Health Concerns Section Related Observation LastModified by Organization Detai ls LastModified Time None Recorded Concern Status LastModified by Organization Details LastModified Time None Recorded Advance Directives Directive None Recorded Payers Encounter Date Sequence Insurance Name Policy Number Policy Masters Covered Member ID Masters Member ID Guarantor Name 03/25/2022 1 [employer] Maida S Seals [id number] Maida S Seals 05/19/2022 1 [employer] Maida S Seals [id number] Maida S Seals Notes Date Note Type [...] is going through. PATRICE ORDOÑEZ CNM [address] [place], [address], [facility] 03/25/2022 16:46:01 05/19/2022 text/html pt is here to discuss weight loss medication/healthy lifestyle. Luis Alberto Ribera MD [address] [facility], [place], [address], [facility] 05/20/2022 21:27:38 OBGyn Episode No OBEpisode recorded.
[2024-10-29 16:38] LABS: Add Urine Microscopic? NO; Appearance Urine Clear (Clear); Bilirubin Urine Negative (Negative); Blood Urine Negative (Negative); Color Urine Yellow (Yellow); Glucose Urine UA Negative (Negative); Ketones Urine Negative (Negative); Leukocyte Esterase Ur Negative LEU/UL (Negative); Nitrate Urine Negative (Negative); Protein Urine Negative (Negative); Specific Grav Ur 1.025 (1.001-1.035); Urobilinogen Urine 0.2 mg/dL (<2.0)
--- OUTSIDE RECORDS SUMMARY | 2024-10-29 16:42 | XMS_ITS | Clinical Summary ---
Author Organization [facility] Address [facility] [place] [address] Care Team Providers Care Paraprofessional Aide Teacher Name Role Phone Joon Montiel MD Primary Care Provider Allergies No known active allergies Medications ALLERGY RELIEF 180 MG tablet Take 1 tablet (180 mg total) by mouth daily. 2 Active fluticasone propionate (FLONASE) 50 MCG/ACT nasal sprayIndications :Acute non-recurrent frontal sinusitis 1 spray by Each Nostril route daily. 16 g 11 4 Active losartan-hydroCH LOROthiazide (HYZAAR) 100-25 MG tabletIndication s:Essential hypertension Take 1 tablet by mouth daily. 90 tablet 3 4 Active predniSONE (DELTASONE) 10 mg tabletIndication s:Costochondriti s 3 TABS PO DAILY X 3 DAYS, THEN 2 TABS PO DAILY X 3 DAYS, THEN 1 TAB PO DAILY X 3 DAYS. 18 tablet 5 Active naproxen (NAPROSYN) 500 MG tabletIndication s:Right leg pain TAKE 1 TABLET(500 MG) BY MOUTH TWICE DAILY WITH MEALS FOR 14 DAYS 28 tablet 5 Active tirzepatide (MOUNJARO) 12.5 MG/0.5ML injectionIndicat ions:Diabetes Mellitus Inject 12.5 mg into the skin every 7 days. Indications: Diabetes 2 mL 3 5 Active tirzepatide (MOUNJARO) 10 MG/0.5ML injectionIndicat ions:Diabetes Mellitus Inject 10 mg into the skin once a week. Indications: Diabetes 6 mL 3 5 10/20/19 25 Discontinu ed(Dose adjustment ) Active Problems Problem Noted Date Diagnosed Date Type 2 diabetes mellitus wit h hyperglycemia, without long-term current use of insulin ([facility]) 2023 SOB (shortness of breath) 2023 Stage [...] Encounters Date Type Department Care Team Description 10/19/2024 Telephone [facility] Family Medicine - [place] [address], [address] [place] [address] Joon Montiel MD Refill Request 09/19/2024 Telephone [facility] Family Medicine - [place] [address], [address] ' [place] [address] Joon Montiel MD Results (Knee MRI) 09/16/2024 Orders Only [facility] [address] [place] [address] Joon Montiel MD 09/15/2024 10:59 AM CDT - 09/15/2024 11:59 PM CDT Hospital Encounter [facility] [place] [address] [place] [address] Joon Montiel MD Discharge Disposition: Home or Self Care (Routine Discharge) 09/15/2024 10:58 AM CDT Hospital Encounter [facility] Diagnostic Imaging [address] [place] [address] Joon Montiel MD Discharge Disposition: Home or Self Care (Routine Discharge) 09/15/2024 10:00 AM CDT Office Visit [facility] [address], [address] [place] [address] Joon Montiel MD Flank Pain (Left sided pain did not stop with medication ) 09/15/2024 Telephone [facility] [address], [address] [place] [address] Joon Montiel MD Results (X-ray rib) 09/15/2024 Telephone [facility] [address], [address] [place] [phone] Joon Montiel MD Results (CT abdomen and pelvis, Xray left ribs) 09/15/2024 Travel 09/15/2024 Telephone [facility] [address], [address] [place] [address] Joon Montiel MD Error 09/09/2024 1:00 PM CDT Office Visit [facility] [address], [address] [place] [address] Joon Montiel MD Follow Up (BP check, as well as referrals needed if possible. Has been having pain her head. Would like to see a neurologist, grocery department manager, urologist. [facility] lab. ) 09/09/2024 9:35 AM CDT - 09/09/2024 11:59 PM CDT [facility] [address] [place] [address] Joon Montiel MD Discharge Disposition: Home or Self Care (Routine Discharge) 09/09/2024 Travel 09/08/2024 Telephone [facility] [address], [address] [place] [address] Joon Montiel MD Problem; Referral 09/01/2024 Telephone [facility] [address], [address] [place] [address] Joon Montiel MD Question 08/31/2024 Scan [facility] INFO SRVCS Scanned, [facility] 08/26/2024 8:00 AM INDEPENDENT DISTRIBUTOR Office Visit [facility] [address], [address] [place] [address] Joon Montiel MD Follow Up (Discuss a pain in her head at the top of her head that occurs when she is laughing. She wants to get a MRI, but was told she can't get one. Also having a pain on her left side that started on Thursday. [facility] lab.) 08/25/2024 10:40 AM INDEPENDENT DISTRIBUTOR - 08/25/2024 11:59 PM INDEPENDENT DISTRIBUTOR Hospital Encounter [facility] [address] [place] [address] Joon Montiel MD Discharge Disposition: Home or Self Care (Routine Discharge) 08/25/2024 Travel 08/24/2024 Telephone [facility] [address], [address] [place] [address] Joon Montiel MD Problem 08/11/2024 Orders Only [facility] [address], [address] [place] [address] Joon Montiel MD 08/10/2024 Telephone [facility] [address], [address] [place] [phone] Joon Montiel MD Problem 08/09/2024 7:58 AM INDEPENDENT DISTRIBUTOR - 08/09/2024 11:59 PM INDEPENDENT DISTRIBUTOR Hospital Encounter [facility] [address] Joon Montiel MD Discharge Disposition: Home or Self Care (Routine Discharge) 08/09/2024 Travel 08/01/2024 9:31 AM INDEPENDENT DISTRIBUTOR - 08/01/2024 11:59 PM INDEPENDENT DISTRIBUTOR Hospital Encounter [facility] [address] Joon Montiel MD Discharge Disposition: Home or Self Care (Routine Discharge) 08/01/2024 8:00 AM INDEPENDENT DISTRIBUTOR Office Visit [facility] [address], [address] [place] [address] Joon Montiel MD Knee Pain (Right knee has been hurting bad for a week./Pt states that she did not injure it. /) 08/01/2024 Telephone [facility] [address], [address] [place] [address] Joon Montiel MD Lab Results (Critical- D Dimer) 08/01/2024 Travel from Last 3 Months Immunizations Immunization Administration Dates Next Due Fluzone 6 Months+ [...] Sex Assigned at Female 08/01/2024 9:29 AM INDEPENDENT DISTRIBUTOR Legal Sex Female 7:59 PM CDT Gender Identity Female 08/26/2024 8:13 AM INDEPENDENT DISTRIBUTOR Sexual Orientation Not on file Last Filed Vital Signs Vital Sign Reading Time Taken Comments Blood Pressure 125/75 09/15/2024 9:58 AM CDT Pulse 75 09/15/2024 9:58 AM CDT Temperature 36.8 C (98.2 F) 09/15/2024 9:58 AM CDT Respiratory Rate 18 09/15/2024 9:58 AM CDT Oxygen Saturation 100% 09/15/2024 9:58 AM CDT Inhaled Oxygen Concentration - - Weight 100.1 kg (220 lb 9.6 oz) 09/15/2024 9:58 AM CDT Height 170.2 cm (5' 7.01 ) 09/15/2024 9:58 AM CD T Body Mass Index 34.54 09/15/2024 9:58 AM CDT Plan of Treatment Upcoming Encounters Date Type Department Care Team (Late st Contact Info) Description 11/01/2024 9:20 AM CDT Office Visit [facility] Orthopedic & Sports Medicine - [place] [address] [place] [address] Chico Trujillo MD [address] [address] [place] [address] 11/15/2024 1:00 PM CDT Office Visit [facility]ispecialty [facility] - [facility] [address], [address] [place] [phone] Taty Dumont NP [address] [place] [address] Health Maintenance Due Date Last Done Comments DTaP, Tdap and Td Vaccines (1 - Tdap) 1984 Pneumococcal Vaccine: 50+ Years (1 of 2 - PCV) 1984 Zoster Vaccines (1 of 2) 2015 COVID-19 Vaccine (3 - season) 2024 11/01/2020, 10/04/2020 Hemoglobin A1C 01/29/2025 08/01/2024, 04/29, 10/12/2023, Additional history exists Annual Physical 05/12/2025 05/12/2024, 02/28/2022 Kidney Health Evaluation 08/01/2025 08/01/2024 Lipid Panel 08/01/2025 08/01/2024, 0808/2022, 03/27/2022, Additional history exists Diabetes: Retinopathy Eye Exam 04/13/2026 04/13/2024 Mammogram Screening 05/31/2026 05/31/2024, 04/10/2023, 02/28/2022, Additional history exists Colorectal Cancer Screening Colonoscopy (10 Years) 04/11/2032 04/11/2022, 12/14/2017, 12/04/2017 Hepatitis C Completed 05/05/2018, 12/2017, 04/11/2013 PHQ-2 (Physician [place]) Completed 08/01/2024 Meningococcal B Vaccine Aged Out No l onger eligible based on patient's age to complete this topic Meningococcal Vaccine Aged Out No bhupinder lenore eligible based on patient's age to complete this topic RSV Immunizations Under 20 Months Aged Out No longer eligible based on patient's age to complete this topic Procedures Procedure Name Priority Date/Time Associated Diagnosis Comments XR RIBS LT UNI STAT 09/15/2024 11:19 AM CDT Left flank pain CT ABD+PEL WO CON STAT 09/15/2024 11: 09 AM CDT Left flank pain MRI KNEE RT WO CON Routine 09/09/2024 10 :34 AM CDT Effusion of bursa of right knee XR KNEE+SUNRISE RT 3V STAT 08/25/2024 11:05 AM INDEPENDENT DISTRIBUTOR Right leg pain USV ART REST W FREIDA LOW EXT LILIANA 08/09/2024 8:30 AM INDEPENDENT DISTRIBUTOR Claudication VITAMIN D, 25 OH Routine 08/01/2024 9:48 AM INDEPENDENT DISTRIBUTOR Vitamin D deficiency LIPID PANEL Routine 08/01/2024 9:48 AM INDEPENDENT DISTRIBUTOR Screening cholesterol level BASIC METABOLIC PANEL Routine 08/01/2024 9:48 AM INDEPENDENT DISTRIBUTOR Type 2 diabetes mellitus with hyperglycemia, without long-term current use of insulin ([facility]) Essential hypertension Stage 2 chronic kidney disease ALBUMIN URINE RANDOM W/CREATININE Routine 08/01/2024 9:45 AM INDEPENDENT DISTRIBUTOR Type 2 diabetes mellitus with hyperglycemia, without long-term current use of insulin ([facility]) Stage 2 chronic kidney disease D-DIMER, QUANTITATIVE STAT 08/01/2024 9:43 AM INDEPENDENT DISTRIBUTOR Swelling of calf HEMOGLOBIN, GLYCOSYLATED Routine 08/01/2024 9:43 AM INDEPENDENT DISTRIBUTOR Type 2 diabetes mellitus with hyperglycemia, without long-term current use of insulin ([facility]) MG SCREENING W EDDY AUTUMN DIGI Routine 05/31/2024 2:57 PM INDEPENDENT DISTRIBUTOR Encounter for screening mammogram for malignant neoplasm of breast DIABETIC RETINOPATHY EXAM (NEGATIVE)(SCAN ORDER) Routine 04/13/2024 COLONOSCOPY GENERIC (SCAN ORDER) 04/11/2022 HEPATITIS A,B,& C Routine 05/05/2018 8:2 0 AM INDEPENDENT DISTRIBUTOR from Last 3 Months or Most Recently Relevant to Health Maintenance Results * XR RIBS LT UNI (09/15/2024 11:19 AM CDT) Anatomical Region Laterality Modality Chest Radiographic Nuzhat ging 09/15/2024 1:30 PM CDT Impressions 09/15/2024 1:36 PM CDT IMPRESSION: 1. No acute pulmonary infiltrate or consolidation. 2. No appreciable rib fracture. Degenerative changes spine and left acromioclavicular joint. Ordered By: JOON MONTIEL Interpreted By: Joe Carlisle, 09/15/2024 1:30 PM Narrative 09/15/2024 1:36 PM CDT [address] [address] IMAGING STUDIES: XR RIBS LT UNI DATE: 09/15/2024 11:08 AM HISTORY: contineud left lower rib pain despite NSAIDs and oral prednisone, no knonw injury 59-year-old female. Persistent left lower rib pain despite treatment with NSAIDs and oral prednisone. No known specific injury. COMPARISON: CT abdomen pelvis without contrast 09/15/2024. Chest portable 03/10/2023. DISCUSSION: AP and bilateral oblique views of the left ribs on 5 images. Heart size within normal limits. No acute pulmonary vascular congestion. No acute pulmonary infiltrate, pulmonary consolidation, pleural effusion, or pneumothorax. No appreciable rib fracture. Mild thoracic spinal curvature with associated degenerative changes. Mild degenerative changes at the left acromioclavicular joint. Procedure Note Joe Carlisle MD - 09/15/2024 [id number] [place] [address] IMAGING STUDIES: XR RIBS LT UNIDATE: 09/15/2024 11:08 AM HISTORY: contineud left lower rib pain despite NSAIDs and oralprednisone, no knonw injury 59-year-old female. Persistent left lowerrib pain despite treatment with NSAIDs and oral prednisone. No knownspecific injury. COMPARISON: CT abdomen pelvis without contrast 09/15/2024. Chest portable03/10/2023. DISCUSSION: AP and bilateral oblique views of the left ribs on 5 images. Heart size within normal limits. No acute pulmonary vascular congestion. No acute pulmonary infiltrate, pulmonary consolidation, pleural effusion,or pneumothorax. No appreciable rib fracture. Mild thoracic spinal curvature withassociated degenerative changes. Mild degenerative changes at the leftacromioclavicular joint. IMPRESSION: 1. No acute pulmonary infiltrate or consolidation. 2. No appreciable rib fracture. Degenerative changes spine and leftacromioclavicular joint. Ordered By: JOON MONTIEL Interpreted By: Joe Carlisle, 09/15/2024 1:30 PM us Joon Montiel MD GENERAL IMAGING Final R esult * CT ABD+PEL WO CON (09/15/2024 11:09 AM CDT) Anatomical Region Laterality Modality Abdomen Computed Tomogra phy 09/15/2024 1:36 PM CDT Impressions 09/15/2024 1:58 PM CDT IMPRESSION: 1. Multiple bilateral hypodense renal lesions as noted on prior CT and ultrasound exams. Largest lesion in the left upper pole has substantially decreased size compared to 2020. All lesions have density consistent with cysts with no suspicious features on noncontrast study. No hydronephrosis or renal calcification. 2. No acute abnormality of the chest and ribs. Ordered By: JOON MONTIEL Interpreted By: Joe Carlisle, 09/15/2024 1:36 PM Narrative 09/15/2024 1:58 PM CDT [address] [address] IMAGING STUDIES: CT ABD+PEL WO CON DATE: 09/15/2024 11:00 AM HISTORY: flank pain 59-year-old female. Persistent left flank/lower rib pain despite treatment with NSAIDs and oral prednisone. No known specific injury. COMPARISON: Left ribs 09/15/2024. Chest portable 03/10/2023. Ultrasound retroperitoneal 08/08/2019. CT abdomen pelvis without contrast 06/02/2019. DISCUSSION: CT abdomen and pelvis without intravenous contrast. Coronal and sagittal reconstructions. No enteric contrast. Automated exposure control with radiation dose reduction techniques were used. CHEST: No acute infiltrate or consolidation in the lung bases. Minimal scarring in the lower lungs. No fracture of the inferior ribs. No left chest wall soft tissue abnormality. CARDIOVASCULAR: Heart size is normal. No pericardial effusion. Minimal calcific plaque in the infrarenal abdominal aorta. UPPER ABDOMEN: No apparent acute abnormality of the unopacified liver, gallbladder, common bile duct, pancreas, spleen, and adrenal glands. GENITOURINARY: Multiple bilateral hypodense renal lesions as also noted on prior CT and ultrasound exams. 2 cm hypodense lesion in the upper pole right kidney (1.3 HU). 4.6 cm hypodense lesion in the lower pole right kidney (5.3 HU). 5.6 cm hypodense lesion in the upper pole left kidney (6 HU) (this lesion was up to 9.[address] and 9.3 cm on 2019 ultrasound). 1.6 cm hypodense lesion in the mid left kidney (5 HU). 2.4 cm hypodense lesion in the lower pole left kidney (8 HU). These lesions are incompletely characterized on noncontrast CT but do not have suspicious features. No renal, ureter, or urinary bladder calcification. No hydronephrosis or hydroureter. Urinary bladder within normal limits. Hysterectomy. LYMPHATIC: No apparent pathologic adenopathy given limitations of noncontrast study. GASTROINTESTINAL: No acute abnormality of the lower esophagus, stomach, or duodenum. Mild fluid within the small bowel. No apparent bowel obstruction or focal inflammation. Normal appendix. No free fluid in the abdomen or pelvis. MUSCULOSKELETAL: Degenerative changes of the visualized thoracic spine and lumbar spine. Small posterior disc and osteophyte complex at L5-S1 is similar to 2019. Degenerative changes of the symphysis pubis and bilateral sacroiliac joints. Bilateral hip degenerative changes including cystic changes in the acetabulum bilaterally. Procedure Note Joe Carlisle MD - 09/15/[address] [address] IMAGING STUDIES: CT ABD+PEL WO CONDATE: 09/15/2024 11:00 AM HISTORY: flank pain 59-year-old female. Persistent left flank/lowerrib pain despite treatment with NSAIDs and oral prednisone. No knownspecific injury. COMPARISON: Left ribs 09/15/2024. Chest portable 03/10/2023. Ultrasoundretroperitoneal 08/08/2019. CT abdomen pelvis without contrast 06/02/2019. DISCUSSION: CT abdomen and pelvis without intravenous contrast. Coronal and sagittalreconstructions. No enteric contrast. Automated exposure control withradiation dose reduction techniques were used. CHEST: No acute infiltrate or consolidation in the lung bases. Minimalscarring in the lower lungs. No fracture of the inferior ribs. No leftchest wall soft tissue abnormality. CARDIOVASCULAR: Heart size is normal. No pericardial effusion. Minimalcalcific plaque in the infrarenal abdominal aorta. UPPER ABDOMEN: No apparent acute abnormality of the unopacified liver,gallbladder, common bile duct, pancreas, spleen, and adrenal glands. GENITOURINARY: Multiple bilateral hypodense renal lesions as also noted onprior CT and ultrasound exams. 2 cm hypodense lesion in the upper poleright kidney (1.3 HU). 4.6 cm hypodense lesion in the lower pole rightkidney (5.3 HU). 5.6 cm hypodense lesion in the upper pole left kidney (6HU) (this lesion was up to 9.[address] and 9.3 cm on 2020ultrasound). 1.6 cm hypodense lesion in the mid left kidney (5 HU). 2.4 cmhypodense lesion in the lower pole left kidney (8 HU). These lesions areincompletely characterized on noncontrast CT but do not have suspiciousfeatures. No renal, ureter, or urinary bladder calcification. No hydronephrosis orhydroureter. Urinary bladder within normal limits. Hysterectomy. LYMPHATIC: No apparent pathologic adenopathy given limitations ofnoncontrast study. GASTROINTESTINAL: No acute abnormality of the lower esophagus, stomach, orduodenum. Mild fluid within the small bowel. No apparent bowel obstructionor focal inflammation. Normal appendix. No free fluid in the abdomen orpelvis. MUSCULOSKELETAL: Degenerative changes of the visualized thoracic spine andlumbar spine. Small posterior disc and osteophyte complex at L5-S1 issimilar to 2019. Degenerative changes of the symphysis pubis and bilateralsacroiliac joints. Bilateral hip degenerative changes including cysticchanges in the acetabulum bilaterally. IMPRESSION: 1. Multiple bilateral hypodense renal lesions as noted on prior CT andultrasound exams. Largest lesion in the left upper pole has substantiallydecreased size compared to 2020. All lesions have density consistent withcysts with no suspicious features on noncontrast study. No hydronephrosisor renal calcification. 2. No acute abnormality of the chest and ribs. Ordered By: JOON MONTIEL Interpreted By: Joe Carlisle, 09/15/2024 1:36 PM us Joon Montiel MD CT Final R esult * MRI KNEE RT WO CON (09/09/2024 10:34 AM CDT) Anatomical Region Laterality Modality Knee Magnetic Resonan ce 09/16/2024 1:26 PM CDT Impressions 09/16/2024 1:42 PM CDT IMPRESSION: 1. Extensive tearing of both menisci, as described above. 2. MCL findings which are nonspecific and could represent sequelae of prior injury with reactive changes from underlying meniscal pathology or a grade 2 sprain. 3. Large joint effusion with mild synovitis. 4. Overall moderate osteoarthritic changes of the knee, approaching severe in the patellofemoral compartment. Ordered By: JOON MONTIEL Interpreted By: Sriram Mueller MD, 09/16/2024 1:26 PM Narrative 09/16/2024 1:[address] PM [address]T [address] [address] EXAMINATION: MRI of the right knee without contrast INDICATION: Chronic right knee pain and effusion. No known injury. COMPARISON: Right knee radiographs on 08/25/2024. TECHNIQUE: Multiplanar, multisequence MR imaging was performed without intravenous contrast, according to routine protocol without complication. FINDINGS: * Menisci: There is extensive heterogeneity of both menisci with a horizontally oriented tear involving the lateral meniscus and contacting both the superior and inferior articular surfaces. There is also a probable oblique component involving the anterior horn. The medial meniscus is mildly extruded with a high-grade radial tear involving the posterior horn/root junction. * Ligaments: The ACL and PCL are intact. The MCL is mildly thickened with periligamentous edema, suggestive of sequelae of prior injury and underlying meniscal pathology or a grade 2 sprain. The LCL complex is intact. * Extensor Mechanism: The quadriceps and patellar tendons are intact. There is tendinosis of the patellar tendon. * Joint: There is a large joint effusion with mild synovitis. There are overall moderate osteoarthritic changes of the knee. There is a small Ellis's cyst. * Articular Cartilage: There is moderate to severe cartilage loss of the patellofemoral compartment with a few areas of full-thickness fissuring. Overall moderate medial and mild lateral compartment articular cartilage thinning. There are partial- thickness cartilage defects involving the weightbearing portions of the medial and lateral compartments. * Miscellaneous: No bone marrow edema or fracture. The popliteal neurovascular structures are grossly unremarkable. Procedure Note Sriram Mueller MD - 09/16/[address] [address] EXAMINATION: MRI of the right knee without contrast INDICATION: Chronic right knee pain and effusion. No known injury. COMPARISON: Right knee radiographs on 08/25/2024. TECHNIQUE: Multiplanar, multisequence MR imaging was performed withoutintravenous contrast, according to routine protocol withoutcomplication. FINDINGS: * Menisci: There is extensive heterogeneity of both menisci with ahorizontally oriented tear involving the lateral meniscus and contactingboth the superior and inferior articular surfaces. There is also aprobable oblique component involving the anterior horn. The medialmeniscus is mildly extruded with a high-grade radial tear involving theposterior horn/root junction. * Ligaments: The ACL and PCL are intact. The MCL is mildly thickened withperiligamentous edema, suggestive of sequelae of prior injury andunderlying meniscal pathology or a grade 2 sprain. The LCL complex isintact. * Extensor Mechanism: The quadriceps and patellar tendons are intact.There is tendinosis of the patellar tendon. * Joint: There is a large joint effusion with mild synovitis. There areoverall moderate osteoarthritic changes of the knee. There is a smallBaker's cyst. * Articular Cartilage: There is moderate to severe cartilage loss of thepatellofemoral compartment with a few areas of full-thickness fissuring.Overall moderate medial and mild lateral compartment articular cartilagethinning. There are partial-thickness cartilage defects involving theweightbearing portions of the medial and lateral compartments. * Miscellaneous: No bone marrow edema or fracture. The poplitealneurovascular structures are grossly unremarkable. IMPRESSION: 1. Extensive tearing of both menisci, as described above. 2. MCL findings which are nonspecific and could represent sequelae ofprior injury with reactive changes from underlying meniscal pathology or agrade 2 sprain. 3. Large joint effusion with mild synovitis. 4. Overall moderate osteoarthritic changes of the knee, approaching severein the patellofemoral compartment. Ordered By: JOON MONTIEL Interpreted By: Sriram Mueller MD, 09/16/2024 1:26 PM us Joon Montiel MD MRI Final R esult * XR KNEE+SUNRISE RT 3V (08/25/2024 11:05 AM INDEPENDENT DISTRIBUTOR) Anatomical Region Laterality Modality Knee Radiographic Nuzhat ging 08/25/2024 11:4 4 AM INDEPENDENT DISTRIBUTOR Impressions 08/25/2024 11:51 AM INDEPENDENT DISTRIBUTOR =====IMPRESSION:===== Moderate osteoarthritis with moderate joint effusion. If there is clinical concern for internal knee derangement, consider MRI. Ordered By: JOON MONTIEL Interpreted By: Chang Enrique MD, 08/25/2024 11:44 AM Narrative 08/25/2024 11:51 AM INDEPENDENT DISTRIBUTOR [address] [address] Exam date/time: 08/25/2024 10:44 AM Examination: Right [...] Procedure Note Chang Enrique MD - 08/25/[address] [address] Exam date/time: 08/25/2024 10:44 AM Examination: Right [...] W FREIDA LOW EXT (08/09/2024 8:30 AM INDEPENDENT DISTRIBUTOR) Anatomical Region Laterality Modality Extremity Vascular Ultraso und 08/09/2024 8:05 AM INDEPENDENT DISTRIBUTOR Narrative 08/11/2024 7:12 AM INDEPENDENT DISTRIBUTOR ARTERIAL DOPPLER - FREIDA BILATERAL LOWER EXTREMITY VASCULAR LAB Pat.Name: ALVIN ROBERTS Pat.ID: [id number] .Date: 08/09/2024 Exam Time: 8:05:00 AM Study Type:ISRRAEL VS Arterial Doppler Legs AUTUMN Age: 10 1965,59Y Sex: F Sonogrphr: Zafar Metcalf Violetta Pat. Stat.:Outpatient History / Clinical:right knee, calf pain Procedures: Doppler waveforms, Digit PPG, Systolic Pressures w/FREIDA ++++++++++++++++++++++++++++++++++++ SUMMARY: ++++++++++++++++++++++++++++++++++++ Leon FREIDA Criteria: >1.30 = falsely elevated, calcified vessels; [...] EXTREMITY VASCULAR LAB Pat.Name: ALVIN ROBERTS Pat.ID: [id number] .Date: 08/09/2024 Exam Time: 8:05:00 AM Study Type:ISRRAEL VS Arterial Doppler Legs AUTUMN Age: 10 1965,59Y Sex: F Sonogrphr: Zafar Metcalf RVT Pat. Stat.:Outpatient History / Clinical:right knee, calf pain Procedures: Doppler waveforms, Digit PPG, Systolic Pressures w/FREIDA ++++++++++++++++++++++++++++++++++++ SUMMARY: ++++++++++++++++++++++++++++++++++++ [facility] FREIDA Criteria: >1.30 = falsely elevated, calcified vessels; [...] AM Chang Osuna M.D. Joon Montiel MD [facility] Final R esult * BASIC METABOLIC PANEL (08/01/2024 9:48 AM [facility]) Pathologist [facility] GLUCOSE 90 70 - 99 MG/DL 08/01/2024 11:05 AM [facility] BUN 14 7 - 18 MG/DL 08/01/2024 11:05 AM [facility] CREATININE S/P/B 0.73 0.55 - 1.02 MG/DL 08/01/2024 11:05 AM [facility] SODIUM S/P/B 139 136 - 145 MMOL/L 08/01/2024 11:05 AM [facility] POTASSIUM S/P/B 4.3 3.5 - 5.1 MMOL/L 08/01/2024 11:05 AM [facility] CHLORIDE S/P/B 109 97 - 115 MMOL/L 08/01/2024 11:05 AM [facility] CO2 26.6 21 - 32 MMOL/L 08/01/2024 11:05 AM [facility] CALCIUM S/P/B 9.2 8.5 - 10.1 MG/DL 08/01/2024 11:05 AM [facility] ANION GAP 3.4 2 - 10 MMOL/L 08/01/2024 11:05 AM [facility] BUN CREATININE RATIO 19.2 6 - 26 08/01/2024 11:05 AM [facility] GFR ESTIMATE >90 >90 ML/MIN/1.7 3 M2 08/01/2024 11:05 AM [facility] Comment: NOTE: eGFR is not calculated for patients <18 years of age or gender unknown. This is an estimated GFR calculation using the new CKD EPI creatinine equation without race and so does not require a correction factor for race. This estimated GFR should not be used for calculating drug doses. 08/01/2024 9:48 AM INDEPENDENT DISTRIBUTOR us Joon Montiel MD LABORATORY Final R esult [facility] [address] [place] [address], * LIPID PANEL (08/01/2024 9:48 AM INDEPENDENT DISTRIBUTOR) CHOLESTEROL 166 <200 MG/DL 08/01/2024 11:05 AM [facility] TRIGLYCERIDES 84 <150 MG/DL 08/01/2024 11:05 AM [facility] HDL 61 >40.0 MG/DL 08/01/2024 11:05 AM [facility] LDL (CALCULATED) 88 <100 MG/DL 08/01/19 11:05 AM [facility] NON HDL CHOLESTEROL 105 <130 MG/DL 08/01 11:05 AM [facility] CHOL/HDL RATIO 2.7 0.0 - 4.5 08/01/2024 11:05 AM [facility] VLDL CALCULATION 17 5 - 55 MG/DL 08/01/2024 11:05 AM [facility] LIPID INTERPRETATION 08/01/2024 11:05 AM [facility] Comment: [facility] REPORT RECOMMENDATIONS: ADULT CHILD LOW RISK: CHOLESTEROL <200 <170 TRIGLYCERIDE <150 --- HDL >=60 --- LDL <100 <110 BORDERLINE: CHOLESTEROL 200-239 170-199 TRIGLYCERIDE 150-199 --- HDL 40-59 --- LDL 100-159 110-129 HIGH RISK: CHOLESTEROL >=240 >=200 TRIGLYCERIDE >=200 --- HDL <40 --- LDL >=160 >=130 08/01/2024 9:48 AM INDEPENDENT DISTRIBUTOR Joon Montiel MD LABORATORY Final [facility] [[email or web address]] Performing Organization Address City/[facility]/ZIP Co de Phone Number [facility] [address] [place] [address], [place] [phone] * VITAMIN D 25 [place] ([facility] ONLY) (08/01/2024 9:48 AM INDEPENDENT DISTRIBUTOR) Pathologist [facility] VITAMIN D 25 HYDROXY S/P/B 35 30 - 100 NG/ML 08/01/2024 12:00 PM INDEPENDENT DISTRIBUTOR [facility] Comment: INTERPRETATION DEFICIENT <20 INSUFFICIENT 20-29 SUFFICIENT 30-100 08/01/2024 9:48 AM INDEPENDENT DISTRIBUTOR Joon Montiel MD LABORATORY Final R community health Performing Organization Address City/[facility] Co de Phone Number [facility] [address] [place] [address], [place] [phone] * ALBUMIN URINE RANDOM W/CREATININE (08/01/2024 9:45 AM INDEPENDENT DISTRIBUTOR) CREATININE (U) 129.0 28 - 217 MG/DL 08/01/2024 10:26 AM INDEPENDENT DISTRIBUTOR [facility] MICROALBUMIN (U) <0.5 <2.0 mg/dL 08/01/2024 10:26 AM INDEPENDENT DISTRIBUTOR [facility] ALBUMIN/CREAT RATIO NOT CALCULATED <30 MG/G 08/01/2024 10:26 AM INDEPENDENT DISTRIBUTOR [facility] URINE SPECIMEN / Unknown 08/01/2024 9:45 AM INDEPENDENT DISTRIBUTOR Joon Montiel MD URINE ORDERABLES Final Result [facility] [address] [place] [address], * (ABNORMAL) HEMOGLOBIN, GLYCOSYLATED (08/01/2024 9:43 AM INDEPENDENT DISTRIBUTOR) HGB A1C 6.0(H) <5.7 % 08/01/2024 10:39 AM INDEPENDENT DISTRIBUTOR [facility] Comment: ADA GUIDELINES 2010 5.7 TO 6.4% INCREASED RISK OF DIABETES > OR = 6.5% CONSISTENT WITH DIABETES ESTIMATED AVG GLUCOSE 126 mg/dL 08/01/2024 10:39 AM INDEPENDENT DISTRIBUTOR [facility] 08/01/2024 9:43 AM INDEPENDENT DISTRIBUTOR Joon Montiel MD LABORATORY Final R esult Performing Organization Address City/[facility]/ZIP Co de Phone Number [facility] [address] [place] [address], * (ABNORMAL) D-DIMER, QUANTITATIVE (08/01/2024 9:43 AM INDEPENDENT DISTRIBUTOR) D-DIMER 566(HH) 0 - 500 ng{FEU}/mL 08/01/2024 10:36 AM INDEPENDENT DISTRIBUTOR [facility] Comment: D-Dimer values less than or [...] called 08/01/2024 10:37 AM to [facility] ([id number]/[place]) by [id number]. Read Back: Yes 08/01/2024 9:43 AM INDEPENDENT DISTRIBUTOR Joon Montiel MD LABORATORY Final R esult [facility] [address] [place] [address], * MG SCREENING W EDDY AUTUMN DIGI (05/31/2024 2:57 PM INDEPENDENT DISTRIBUTOR) Anatomical Region Laterality Modality Breast Bilateral Mammography 05/31/2024 4:26 PM INDEPENDENT DISTRIBUTOR Impressions 05/31/2024 4:28 PM INDEPENDENT DISTRIBUTOR IMPRESSION: No significant interval change. No mammographic evidence of malignancy. RECOMMENDATION: Routine ScreeningBilateral OVERALL IMAGING ASSESSMENT: ACR BI-RADS 2 - BENIGN FINDING(S). Ordered By: JOON MONTIEL Interpreted By: Terrell Ascencio, 05/31/2024 4:26 PM Narrative 05/31/2024 4:28 PM INDEPENDENT DISTRIBUTOR [facility] Care [facility] [place] [address] EXAMINATION: MG SCREENING W EDDY AUTUMN DIGI [...] asymmetry or architectural distortion. No axillary adenopathy. Joon Montiel MD MAMMO Final R esult * DIABETIC RETINOPATHY EXAM (NEGATIVE) (04/13/2024) [facility] Scanned SCANNING Final Resu lt HS ONBASE * COLONOSCOPY GENERIC (04/11/2022) 04/11/2022 us [facility] Scanned SCANNING Final Resu lt * HEPATITIS A,B,& C (05/05/2018 8:20 AM INDEPENDENT DISTRIBUTOR) HAV IGM NON-REACTI VE NR [facility] TO EPIC CONVERSION HEPATITIS B SURFACE AG NON-REACTI VE NR [facility] TO EPIC CONVERSION HEP B SURFACE AB NON-REACTI VE [facility] TO EPIC CONVERSION HEP B CORE TOTAL AB NON-REACTI VE NR [facility] TO EPIC CONVERSION HEPATITIS C AB NON-REACTI VE NR [facility] TO EPIC CONVERSION 05/05/2018 8:20 AM INDEPENDENT DISTRIBUTOR 05/05/2018 8:20 AM INDEPENDENT DISTRIBUTOR Narrative [facility] TO EPIC CONVERSION - 05/05/2018 9:59 PM INDEPENDENT DISTRIBUTOR Result Communication: No patient communication needed at this time Joon Montiel MD LABORATORY Final R esult [facility] TO EPIC CONVERSION from Last 3 Months or Most Recently Relevant to Health Maintenance Insurance [employer] [facility] Care Teams Paraprofessional Aide Teacher Relationship Specialty Start Date End Date Joon Montiel MD [address] [facility] [address] [place] [address] PCP - General 12/25/16
--- OUTSIDE RECORDS SUMMARY | 2024-10-29 16:42 | XMS_ITS | Encounter Summary ---
Author Organization [facility] [place] Address [facility] [place] [address] Care Team Providers Care Shield Installer Name Role Phone Joon Montiel MD Primary Care Provider Encounter Details Date Type Department Care Team (Latest Contact Info) Description 03/14/2018 Abstract [facility] Medical Group Lane Ozuna MD Social History Tobacco Use Types Packs/Day Years Used Date Smoking Tobacco: Never Smokeless Tobacco: Never Alcohol Use Standard Drinks/Week Comments No 0 (1 standard drink = 0.6 oz pur e alcohol) Comments No Sex and Gender Information Value Date Recorded Sex Assigned at Female 08/01/2024 9:29 AM INDEPENDENT JEWELER Legal Sex Female 7:59 PM CDT Gender Identity Female 08/26/2024 8:13 AM INDEPENDENT JEWELER Sexual Orientation Not on file documented as of this encounter Plan of Treatment Upcoming Encounters Date Type Department Care Team (Late st Contact Info) Description 11/01/2024 9:20 AM CDT Office Visit [facility] - [place] [address] [place] [address] Chico Trujillo MD [address] [address] [place] [address] 11/15/2024 1:00 PM CDT Office Visit [facility] - [address], [address] [place] [phone] Taty Dumont, CONFLICT RESOLUTION PROFESSIONAL [address] [facility] [address] [place], [place] [phone] documented as of this encounter Visit Diagnoses Not on filedocumented in this encounter Additional Health Concerns Infection Onset Date Last Indicated Resolved Time COVID-19 Rule Out 10/12/2023 10/12/2023 10/12/2023 8:38 AM CDT documented as of this encounter Care Teams Shield Installer Relationship Specialty Start Date End Date Joon Montiel MD [address] [place] [address] [place] [address] PCP - General 12/25/16 documented as of this encounter
[2024-10-29] MEDS: SODIUM CHLORIDE 0.9% IV 1,000 ML 999 ML IV CONT (16:44)
[2024-10-29] MEDS: KETOROLAC 30 MG/ML VIAL (*BKC) IV PUSH (16:44)
[2024-10-29 18:30] VITALS: BP 170/82; PULSE 69; RESP 16; O2SAT 100
== END 2024-10-29 18:33 | disposition home or self-care (01) ==
PROVIDERS: Emergency Provider Emergency Medicine; PCP Family Medicine
DX: R10.9 Unspecified abdominal pain (principal); M79.18 Myalgia, other site; I10 Essential (primary) hypertension
CPT/HCPCS: 36415; 71045; 74177; 80053; 81003; 83690; 85025; 96361; 96374; 99284; J1885; J7030; Q9967